=== PATIENT | female | born 1995 | race Caucasian/White ===

== ENCOUNTER 2020-08-02 08:39 | Emergency (ER) | payer OTHER, SELFPAY ==
[2020-08-02 10:16] VITALS: BP 144/89; PULSE 81; RESP 20; TEMP 37.3; O2SAT 100; BMI 27.4
--- NOTE | 2020-08-02 10:24 | CT_ITS ---
EXAMINATION: CT HEAD WITHOUT CONTRAST CLINICAL INFORMATION: Headache for 3 days. Worsening. Age 25. COMPARISON: None TECHNIQUE: Contiguous axial imaging was performed from the skull base to vertex without intravenous administration of contrast. Additional 2-D coronal and sagittal reformatted images are generated on the CT workstation and uploaded to PACS. This CT examination was performed using dose optimization techniques as appropriate, variously including the following: *Automated exposure control *Adjustment of mA and/or kV according to patient size (this includes techniques or standardized protocols for targeted exams where dose is matched to indication/reason for exam; i.e. extremities or head) *Use of iterative reconstruction technique DLP: 640 mGy-cm FINDINGS: There is no intracranial hemorrhage, hematoma, or extra-axial fluid collection. The ventricles are normal in size. There is no hydrocephalus, edema, or mass effect. The delgado-white matter differentiation appears symmetric. There is no visible acute territorial infarct or mass lesion. Incidental anterior falx calcification. The calvarium appears intact. There is no pneumocephalus or orbital emphysema. The visualized sinuses and middle ears and mastoid air cells show no significant mucosal thickening. There are no air-fluid levels. There is small circumscribed nodule right parasagittal scalp vertex measuring 8 x 6 mm with coarse central calcification, likely keratin cyst. CT/CT head/brain wo con IMPRESSION: No acute intracranial abnormality. Sinuses and middle ears and mastoids clear.
--- NOTE | 2020-08-02 10:27 | ED.HA ---
HPI - Headache General Chief Complaint: Headache Stated Complaint: migraine Time Seen by Provider: 08/02/20 10:17 Source: patient Mode of arrival: ambulatory Limitations: no limitations History of Present Illness HPI Narrative: 25yoF c PMHx of Migraine headaches presenting to the ED c c/o gradual onset pressure-like diffusely all over the head migraine headache that started approximately 8 days ago that has been constant not relieved by sumatriptan. patient was also prescribed muscle relaxants by her primary care provider with no symptomatic relief. Reports the pain is worse with laying down or bending over forward. Reports mild relief with sitting up. Reports it feels like her regular migraine headaches with the exception of it being going on for this amount of time which is not usual for her. Denies past medical history of HIV, recent trauma, coagulopathy, recent spinal/ epidural procedure, new medication, URI symptoms, close contacts with similar symptoms, tick bite, or known CO2 exposure. Related Data Previous Rx's Medication Instructions Recorded [id number]-hjyqhxuwbtpqj-bpnf 1 cap PO Q8H PRN #10 cap 08/02/20 [Fioricet] diphenhydramine HCl [Benadryl 25 mg PO TID PRN #10 tab 08/02/20 Allergy] famotidine [Pepcid] 20 mg PO BID #10 tab 08/02/20 ketorolac 10 mg PO TID PRN 5 Days #10 tab 08/02/20 Allergies Allergy/AdvReac Type Severity Reaction Status Date / Time No Known Allergies Allergy Verified 08/02/20 10:23 Review of Systems Review of Systems: Constitutional : No changes in activity, No lethargy, No recent prior head injury, No agitation, No increased fussiness ENT/Mouth : No Ear Pain, No Nasal discharge/drainage Eyes: No Eye Pain, No Swelling, No Redness, No Foreign Body, No Vision Changes Cardiovascular : No Chest Pain, No SOB Respiratory : No Cough Gastrointestinal : No Nausea, No Vomiting, No abdominal Pain Genitourinary : No Dysuria, No Urinary Frequency, No Urinary Incontinence, No Urgency, No Flank Pain Musculoskeletal : No joint pain, No neck stiffness, No back pain/injury Skin : No lacerations Neuro : No unsteady gait, No Paresthesias, No Loss of Consciousness, No altered mental status, No dizziness, + Headache Denies past medical history of HIV, recent trauma, coagulopathy, recent spinal/ epidural procedure, new medication, URI symptoms, close contacts with similar symptoms, tick bite, or known CO2 exposure. Yes all other systems are reviewed and are negative PMFSH Past Medical History Attestation statement: The following information was validated with the patient. Medical History Migraines Social History Social History Smoked in Last 30 Days: No Use of substances other than those prescribed or required for medical reasons: No Advance Directives: No Advance Directives Information Provided: Yes Physical Exam Vital Signs: Vital Signs: Last Vital Signs Temp 99.2 F 08/02/20 10:16 Pulse 74 08/02/20 12:25 Resp 16 08/02/20 12:25 BP 133/82 08/02/20 12:25 Pulse Ox 96 08/02/20 12:25 Body Mass Index 27.4 Vital signs have been reviewed as normal and appeared to be correct. Blood pressure normal. Heart rate normal. Respiration rate normal. Temperature normal. Oxygen saturation normal. Appearance: Alert. Oriented X3. No acute distress. Head: Normal external exam. Normocephalic. Atraumatic. Able to rotate head bilaterally. Eyes: PERRLA. EOMI. No nystagmus noted. Conjunctiva and sclera normal. Eyelids normal. Corneal reflex normal. ENT: EAC normal. TM's Normal. Hearing normal. Pharynx normal. Uvula midline. tongue midline. Moist mucous membranes. No trismus noted. No drooling noted. No muffled voice noted. Neck: Normal inspection. Neck supple. FROM. No adenopathy. Thyroid Normal. No meningeal signs. No neck mass noted. CVS: Normal heart rate and rhythm. Heart sound normal. No murmurs noted. Pulses normal throughout. Respiratory: No respiratory distress. Painless inspiration. Breath sounds normal. No wheezes/rales/rhonchi noted. Chest nontender. No accessory muscle usage noted or decreased air movement noted. Back: Full range of motion noted. Skin: Skin warm and dry. Normal skin color. Normal skin turgor. No rashes/lesions/lacerations noted. Extremities: Extremities exhibit normal range of motion. Extremities nontender. Able to shrug shoulders bilaterally and keep up against resistance. Neuro: Oriented X 3. No motor deficit. No sensory deficit. Reflexes normal. Moving all extremities. No focal motor deficits. Cranial nerves II-XI intact bilaterally. Facial strength normal. Normal cognition. Speech normal. Gait normal. Strength 5/5 throughout. No pronator drift. No tremor noted. No fasciculations noted. Muscle tone normal throughout. No asterixis noted. Qzflkl-lf-nlpy test normal. Heel to kaur test normal. Tandem gait normal. Does not sway with eyes open. Romberg test negative. Rapid alternating movement upper extremity normal. Rapid alternating movement lower extremity normal. Hand drop from overhead-Mrs. face. No rigidity noted. NIHSS score 0. Course Course Course Narrative: 10:30AM - 25yoF c PMHx of Migraine headaches presenting to the ED c c/o gradual onset pressure-like diffusely all over the head migraine headache that started approximately 8 days ago that has been constant not relieved by sumatriptan. Reports it feels like her regular migraine headaches with the exception of it being going on for this amount of time which is not usual for her. - Patient afebrile, resting comfortably in no distress. Non-toxic appearing. Patient denies any recent trauma/injury to head. Neurological exam shows no deficits. BP WNL. Denies any changes in vision. Patient ambulates without difficulty. Given the history, and physical - most likely diagnosis: Migraine LUJAN. Although due to patient reporting that this is longer than her usual headaches will obtain CT scan of brain to evaluate for any acute processes. Will treat pain then Re-evaluate. Reevaluation(s) Reevaluation #1: patient's platelet count 446. CRP mildly elevated at 0.72 otherwise all other labs are within normal limits. CT scan revealed chronic changes no acute processes noted. Patient reports symptomatic relief of her headache after the Toradol, Benadryl, Reglan and Decadron. Will DC home with symptomatic treatment along with instructions return if any new or worsening symptoms to follow-up with primary care provider. Patient understands agrees with this plan. Time: 14:04 MDM - Headache MDM Narrative Medical decision making narrative: gradual onset LUJAN with photophobia. Pt states classic of previous migraine HAs. SAH: unlikely given gradual onset and similar to previous episodes Intracranial bleed: unlikely given neg trauma, neg anticoagulation Meningitis: unlikely given pt afebrile, neg stiff neck, no immune compromise. Exam without signs of meningismus Temporal arteritis: Unlikely given Neg jaw claudication, no temporal tenderness or nodularity on exam. Cerebral venous thrombosis: unlikely given no h/o hypercoaguable state, no chronic head/neck infection. Medical Records Attestation: I reviewed the patient's medical records. Lab Data Attestation: I reviewed the patient's lab results. Result diagrams: 08/02/20 11:04 08/02/20 12:15 Labs: Lab Results 08/02/20 08/02/20 08/02/20 Range/Units 11:04 12:15 12:15 WBC 7.3 (4.8-10.8) X10*3/uL RBC 4.86 (4.20-5.50) X10*6/uL Hgb 14.0 (12.0-16.0) g/dl Hct 42.0 (37-47) % MCV 86.4 (80-98) fL MCH 28.8 (27.0-33.0) pg MCHC 33.3 (31.0-35.0) g/dl RDW 12.6 (11.0-16.0) % Plt Count 446 H (160-400) X10*3/uL MPV 10.5 (9.4-12.3) fL Immature Gran % (Auto) 0.3 (0.0-0.4) % Neut % (Auto) 69.3 (45-73) % Lymph % (Auto) 22.6 (20-40) % [place] % (Auto) 6.0 (2-11) % Eos % (Auto) 1.5 (0-4) % Baso % (Auto) 0.3 (0-2) % Lymph # (Auto) 1.7 (1.2-4.9) X10*3/uL [place] # (Auto) 0.4 (0.1-1.2) X10*3/uL Eos # (Auto) 0.1 (0.0-0.4) X10*3/uL Baso # (Auto) 0.0 (0.0-0.2) X10*3/uL Abs Immat Gran (auto) 0.02 (0.00-0.03) X10*3/uL Absolute Neuts (auto) 5.1 (2.0-8.3) X10*3/uL Absolute Nucleated RBC 0.000 (0.0-0.012) X10*3/uL Nucleated RBC % (auto) 0.0 (0.0-0.2) /100WBC ESR 14 (0-20) MM/HR Sodium 140 (135-145) mmol/L Potassium 4.0 (3.3-5.1) mmol/l Chloride 108 (96-108) mmol/L Carbon Dioxide 25 (22-29) mmol/L Anion Gap 11 L (12-20) BUN 7 L (9-16) mg/dL Creatinine 0.66 (0.5-1.4) mg/dL Estim Creat Clear Calc 127.2 Estimated GFR > 60 Random Glucose 75 (60-115) mg/dL Calcium 8.6 (8.4-10.2) mg/dL C-Reactive Protein 0.72 H (< or = 0.50) mg/dL Beta HCG, Quant mIU/mL 08/02/20 Range/Units 12:15 WBC (4.8-10.8) X10*3/uL RBC (4.20-5.50) X10*6/uL Hgb (12.0-16.0) g/dl Hct (37-47) % MCV (80-98) fL MCH (27.0-33.0) pg MCHC (31.0-35.0) g/dl RDW (11.0-16.0) % Plt Count (160-400) X10*3/uL MPV (9.4-12.3) fL Immature Gran % (Auto) (0.0-0.4) % Neut % (Auto) (45-73) % Lymph % (Auto) (20-40) % [place] % (Auto) (2-11) % Eos % (Auto) (0-4) % Baso % (Auto) (0-2) % Lymph # (Auto) (1.2-4.9) X10*3/uL [place] # (Auto) (0.1-1.2) X10*3/uL Eos # (Auto) (0.0-0.4) X10*3/uL Baso # (Auto) (0.0-0.2) X10*3/uL Abs Immat Gran (auto) (0.00-0.03) X10*3/uL Absolute Neuts (auto) (2.0-8.3) X10*3/uL Absolute Nucleated RBC (0.0-0.012) X10*3/uL Nucleated RBC % (auto) (0.0-0.2) /100WBC ESR (0-20) MM/HR Sodium (135-145) mmol/L Potassium (3.3-5.1) mmol/l Chloride (96-108) mmol/L Carbon Dioxide (22-29) mmol/L Anion Gap (12-20) BUN (9-16) mg/dL Creatinine (0.5-1.4) mg/dL Estim Creat Clear Calc Estimated GFR Random Glucose (60-115) mg/dL Calcium (8.4-10.2) mg/dL C-Reactive Protein (< or = 0.50) mg/dL Beta HCG, Quant < 2 mIU/mL Imaging Data CT scan - head: Attestation: I personally reviewed and interpreted this imaging study as follows: Radiologist's impression: FINDINGS: There is no intracranial hemorrhage, hematoma, or extra-axial fluid collection. The ventricles are normal in size. There is no hydrocephalus, edema, or mass effect. The delgado-white matter differentiation appears symmetric. There is no visible acute territorial infarct or mass lesion. Incidental anterior falx calcification. The calvarium appears intact. There is no pneumocephalus or orbital emphysema. The visualized sinuses and middle ears and mastoid air cells show no significant mucosal thickening. There are no air-fluid levels. There is small circumscribed nodule right parasagittal scalp vertex measuring 8 x 6 mm with coarse central calcification, likely keratin cyst. CT/CT head/brain wo con IMPRESSION: No acute intracranial abnormality. Sinuses and middle ears and mastoids clear. Discharge Plan Discharge Clinical Impression: Migraines Patient Disposition: Home, Self-Care Instructions: Migraine Headache (ED) Prescriptions: New ketorolac 10 mg tablet 10 mg PO TID PRN (Reason: pain) 5 Days Qty: 10 RF: 0 diphenhydramine HCl [Benadryl Allergy] 25 mg tablet 25 mg PO TID PRN (Reason: sleep) Qty: 10 RF: 0 famotidine [Pepcid] 20 mg tablet 20 mg PO BID Qty: 10 RF: 0 [id number] [Fioricet] 50-300-40 mg capsule 1 cap PO Q8H PRN (Reason: pain) Qty: 10 RF: 0 Referrals: dArienne Kuhn NP [Primary Care Provider] - 2 days Stand Alone Forms: Work/School Release Print Language: Czech
[2020-08-02] MEDS: Metoclopramide HCl 10 MG/2 ML VIAL IVPUSH (11:08)
[2020-08-02] MEDS: Ketorolac Tromethamine 30 MG/ML VIAL IVPUSH (11:08)
[2020-08-02] MEDS: diphenhydrAMINE HCL 50 MG/ML VIAL 25 MG IVPUSH (11:08)
[2020-08-02] MEDS: 0.9 % Sodium Chloride 1,000 ML 999 ML IVCONT (11:08)
[2020-08-02 11:16] LABS: MANUAL DIFF FLAG NO
[2020-08-02 12:25] VITALS: BP 133/82; PULSE 74; RESP 16; O2SAT 96
[2020-08-02 12:26] LABS: Basophils Percent Auto 0.3 % (0-2); Eosinophils Absolute Auto 0.1 X10*3/uL (0.0-0.4); Eosinophils Percent Auto 1.5 % (0-4); Imm Gran Abs Auto 0.02 X10*3/uL (0.00-0.03); Imm Gran Pct Auto 0.3 % (0.0-0.4); Lymphocytes Absolute Auto 1.7 X10*3/uL (1.2-4.9); Lymphocytes Percent Auto 22.6 % (20-40); Mean Corpuscular HGB Conc 33.3 g/dl (31.0-35.0); Mean Corpuscular Hemoglobin 28.8 pg (27.0-33.0); Mean Corpuscular Volume 86.4 fL (80-98); Mean Platelet Volume 10.5 fL (9.4-12.3); Monocytes Absolute Auto 0.4 X10*3/uL (0.1-1.2); Neutrophils Absolute Auto 5.1 X10*3/uL (2.0-8.3); Neutrophils Percent Auto 69.3 % (45-73); Platelet Count 446 X10*3/uL (160-400); Red Blood Count 4.86 X10*6/uL (4.20-5.50); Red Cell Distribution Width 12.6 % (11.0-16.0); White Blood Count 7.3 X10*3/uL (4.8-10.8)
[2020-08-02 13:02] LABS: Anion Gap 11 (12-20); Blood Urea Nitrogen 7 mg/dL (9-16); C Reactive Protein 0.72 mg/dL (< or = 0.50); Calcium 8.6 mg/dL (8.4-10.2); Carbon Dioxide 25 mmol/L (22-29); Chloride 108 mmol/L (96-108); Creatinine Clr Calc Pharmacy 127.2; Estimated Glomerular Filt Rate > 60; Glucose Random 75 mg/dL (60-115); Sodium 140 mmol/L (135-145)
[2020-08-02] MEDS: dexAMETHasone sod phosphate 10 MG/ML VIAL IVPUSH (13:04)
[2020-08-02 13:07] LABS: HCG Quantitative < 2 mIU/mL
[2020-08-02 13:23] LABS: Erythrocyte Sedimentation Rate 14 MM/HR (0-20)
== END 2020-08-02 14:17 | disposition home or self-care (01) ==
PROVIDERS: Physician Assistant Medical; Emergency Provider Emergency Medicine; PCP Nurse Practitioner
DX: G43.909 Migraine, unspecified, not intractable, without status migrainosus (principal); Z79.899 Other long term (current) drug therapy
CPT/HCPCS: 36415; 70450; 80048; 84702; 85025; 85652; 86140; 96361; 96374; 96375; 99284; J1100; J1200; J1885; J2765

== ENCOUNTER 2020-12-25 08:56 | Emergency (ER) | payer OTHER, SELFPAY ==
[2020-12-25 09:26] VITALS: BP 147/101; PULSE 91; RESP 16; O2SAT 98; BMI 31.6
--- NOTE | 2020-12-25 09:26 | ED_ITS ---
HPI - Neck Pain/Injury General Chief Complaint: Upper Respiratory Symptoms Stated Complaint: sorethroat Time Seen by Provider: 12/25/20 09:24 Source: patient Mode of arrival: ambulatory Limitations: no limitations History of Present Illness HPI Narrative: Headache for one week sore throat for 4 days, no able to eat or drink Onset (ago): day(s) Severity scale (1-10): 5 Quality: sharp Associated symptoms: headache, fever, swollen glands, difficulty swallowing and nausea Treatments prior to arrival: other Related Data Previous Rx's Medication Instructions Recorded [id number]-udazpuumryxwl-[id number] 1 cap PO Q8H PRN #10 cap 08/02/20 [Fioricet] diphenhydramine HCl [Benadryl 25 mg PO TID PRN #10 tab 08/02/20 Allergy] famotidine [Pepcid] 20 mg PO BID #10 tab 08/02/20 ketorolac 10 mg PO TID PRN 5 Days #10 tab 08/02/20 clindamycin HCl 300 mg PO TID #21 cap 12/25/20 Allergies Allergy/AdvReac Type Severity Reaction Status Date / Time Penicillins Allergy Unknown Verified 12/25/20 09:29 Review of Systems Constitutional: Constitutional: Reports no additional constitutional complaints Eyes: Eyes: Reports no additional eye complaints ENT: Denies dizziness Cardiovascular: Cardiovascular: Reports no additional cardiovascular complaints Respiratory: Respiratory: Reports as per HPI Gastrointestinal: Gastrointestinal: Reports no additional gastrointestinal complaints Genitourinary: Genitourinary: Reports no additional female genitourinary complaints Musculoskeletal: Musculoskeletal: Reports no additional musculoskeletal complaints Integumentary/Breasts: Skin/Breast: Denies rash Neurologic: Reports system reviewed and no additional complaints, except as documented, Denies dizziness and Denies Sensory deficit (Neuro) Psychiatric: Psychiatric: Denies anxiety PMFSH Past Medical History Medical History Migraines Social History Social History Advance Directives: Yes Advance Directives Information Provided: Yes Advance Directives on File: No Physical Exam Vital Signs: Vital Signs: Last Vital Signs Pulse 91 12/25/20 09:26 Resp 16 12/25/20 09:26 BP 147/101 H 12/25/20 09:26 Pulse Ox 98 04/13/21 09:26 Body Mass Index 31.6 Const: General: healthy appearing Nutritional Appearance: average body habitus Orientation/consciousness: oriented to person and patient oriented x3 Limitations: no limitations HENMT: Other: erythema and diffuse exudates of oral pharynx Head: Yes normal to inspection Ears: external ears normal General nose exam: Normal external nose present Throat: Yes posterior oropharynx normal Eyes: General: appearance normal, both eyes and all related structures Neck: Other: supple Neck: Yes normal visual inspection Chest: Chest palpation & inspection: normal inspection of the chest Resp: Auscultation: clear to auscultation bilaterally Cardio: Jugular venous distension: no JVD Rate: regular rate Rhythm: regular rhythm Heart sounds: S1 normal heart sound present and S2 normal heart sound present GI: Inspection: Yes normal to inspection Palpation (GI): Soft to palpation, nontender and No hepatosplenomegaly present Auscultation: normal bowel sounds : General: Yes no CVA tenderness Back/Spine/Pelvis: Back: no CVA tenderness Skin: General skin exam: no rashes or lesions noted Neuro: General: oriented to person and patient oriented x3 Cranial nerves: Yes CN's II-XII intact bilaterally Motor exam (neuro): 5/5 motor strength present throughout Sensory Exam: No Sensory deficit (Neuro) Extrem: General: Yes normal to inspection Psych: Appearance: grossly normal Course Course Course Narrative: with negative monospot and 5 days of symptoms will give decadron and start clindamycin MDM - Neck Pain/Injury MDM Narrative Medical decision making narrative: exudative pharyngitis, monospot negative, rapid strep negative Lab Data Labs: Lab Results 12/25/20 Range/Units 10:15 Monoscreen Negative (Negative) Discharge Plan Discharge Clinical Impression: Exudative pharyngitis Patient Disposition: Home, Self-Care Instructions: Pharyngitis (ED) Prescriptions: New clindamycin HCl 300 mg capsule 300 mg PO TID Qty: 21 RF: 0 No Action ketorolac 10 mg tablet 10 mg PO TID PRN (Reason: pain) 5 Days Qty: 10 RF: 0 diphenhydramine HCl [Benadryl Allergy] 25 mg tablet 25 mg PO TID PRN (Reason: sleep) Qty: 10 RF: 0 famotidine [Pepcid] 20 mg tablet 20 mg PO BID Qty: 10 RF: 0 [id number]-dkeh [Fioricet] 50-300-40 mg capsule 1 cap PO Q8H PRN (Reason: pain) Qty: 10 RF: 0 Referrals: Adrienne Kuhn, [employer] [Primary Care Provider] - 2 days
[2020-12-25] MEDS: Ketorolac Tromethamine 60 MG/2 ML VIAL IM (10:10)
[2020-12-25 11:03] LABS: Monotest Negative (Negative)
[2020-12-25 12:47] LABS: CT PCR NOT DETECTED (Not Detect.); NG PCR NOT DETECTED (Not Detect.)
== END 2020-12-25 13:15 | disposition home or self-care (01) ==
PROVIDERS: Emergency Provider Emergency Medicine; PCP Nurse Practitioner
DX: J02.9 Acute pharyngitis, unspecified (principal); R51.9 Headache, unspecified
CPT/HCPCS: 36415; 86308; 87071; 87491; 87591; 87880; 96372; 99282; 99284; J1100; J1885

== ENCOUNTER 2021-02-24 11:16 | Emergency (ER) | payer OTHER, SELFPAY ==
[2021-02-24 11:32] VITALS: BP 147/88; PULSE 81; RESP 16; TEMP 36.6; O2SAT 98; BMI 30.9
--- NOTE | 2021-03-05 12:02 | ED_ITS ---
HPI - Back Pain/Injury General Chief Complaint: Back Pain/Injury Stated Complaint: lower back pain History of Present Illness HPI Narrative: Patient left without being seen and I did not see this patient Related Data Previous Rx's Medication Instructions Recorded [id number]-qzopfufnwldxa-ncac 1 cap PO Q8H PRN #10 cap 08/02/20 [Fioricet] diphenhydramine HCl [Benadryl 25 mg PO TID PRN #10 tab 08/02/20 Allergy] famotidine [Pepcid] 20 mg PO BID #10 tab 08/02/20 ketorolac 10 mg PO TID PRN 5 Days #10 tab 08/02/20 clindamycin HCl 300 mg PO TID #21 cap 12/25/20 Allergies Allergy/AdvReac Type Severity Reaction Status Date / Time Penicillins Allergy Unknown Verified 12/25/20 09:29 [facility] Past Medical History Medical History Migraines Social History Social History Advance Directives: Yes Advance Directives Information Provided: Yes Advance Directives on File: No Patient : No Physical Exam Vital Signs: Vital Signs: Last Vital Signs Temp 97.9 F 02/24/21 11:32 Pulse 81 02/24/21 11:32 Resp 16 02/24/21 11:32 BP 147/88 H 02/24/21 11:32 Pulse Ox 98 02/24/21 11:32 Body Mass Index 30.9 Discharge Plan Discharge Patient Disposition: Left Without Being Seen Interventions: LWBS Worksheet Last Done: 02/24/21 13:25 Discharge Date/Time: 02/24/21 13:26
== END 2021-02-24 13:26 | disposition left against medical advice (07) ==
PROVIDERS: Emergency Provider Emergency Medicine; PCP Nurse Practitioner
DX: M54.5 Low back pain (principal)
CPT/HCPCS: 99281; 99282

== ENCOUNTER 2022-03-18 02:47 | Emergency (ER) | payer OTHER, SELFPAY ==
[2022-03-18 03:04] VITALS: BP 138/89; PULSE 86; RESP 20; TEMP 36.7; O2SAT 99; BMI 32.9
--- NOTE | 2022-03-18 03:08 | ECG_ITS ---
Test Reason : CHEST PAIN Blood Pressure : / mmHG Vent. Rate : 078 BPM Atrial Rate : 078 BPM P-R Int : 128 ms QRS Dur : 082 ms QT Int : 376 ms P-R-T Axes : 065 071 047 degrees QTc Int : 428 ms Normal sinus rhythm Normal ECG No previous ECGs available Referred By: Generic ED Physician Electronically Signed By:Cain Phan
--- NOTE | 2022-03-18 03:27 | ED.GENADULT ---
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 The patient said she felt very anxious and panicky while driving. Patient also had eaten later than usual and developed some sensation of heartburn. Patient ate an edible after she got home, but states that she had eaten the same thing a few days ago without any med reaction. Patient did feel somewhat lightheaded. She denies any nausea vomiting, sweats, shortness of breath, pain or swelling in her legs. Related Data Previous Rx's Medication Instructions Recorded [id number]-hcksavncfqzmy-vcrxyzhu 1 cap PO Q8H PRN pain #10 caps 08/02/20 50 mg-300 mg-40 mg capsule (Fioricet) diphenhydramine HCl 25 mg tablet 25 mg PO TID PRN sleep #10 tabs 08/02/20 (Benadryl Allergy) famotidine 20 mg tablet (Pepcid) 20 mg PO BID rebound effect of 08/02/20 benadryl #10 tabs ketorolac 10 mg tablet 10 mg PO TID PRN pain 5 days #10 08/02/20 tabs clindamycin HCl 300 mg capsule 300 mg PO TID #21 caps 12/25/20 Allergies Allergy/AdvReac Type Severity Reaction Status Date / Time Penicillins Allergy Unknown Verified 12/25/20 09:29 Review of Systems Review of Systems: As per HPI [facility] Past Medical History Medical History Migraines Social History Social History Advance Directives: No Physical Exam ED Vital Signs: Vital Signs - 24 hr 03/18/22 03:04 Temperature 98.0 F Pulse Rate 86 Respiratory Rate 20 Blood Pressure 138/89 Pulse Oximetry 99 Oxygen Delivery Method Room Air BMI result Body Mass Index 32.9 Const General: no acute distress Orientation/consciousness: patient oriented x3 HENMT Head: Yes normal to inspection General nose exam: Normal external nose present Mouth: moist mucous membranes Throat: Yes posterior oropharynx normal, Yes tonsils normal and Yes uvula midline Eyes Eyelids: Yes eyelids normal Conjunctivae: conjunctivae normal Pupils: Equal, round and reactive pupils present Neck Neck: Yes supple Resp Effort & Inspection: normal respiratory effort Auscultation: clear to auscultation bilaterally Cardio Rate: regular rate Rhythm: regular rhythm Heart sounds: S1 normal heart sound present, S2 normal heart sound present, no gallops, no murmurs and no rubs GI Inspection: No distended Palpation (GI): Soft to palpation and nontender Auscultation: normal bowel sounds Skin General skin exam: other (Warm and dry) Neuro General: patient oriented x3 and CN's II-XI intact bilaterally Cranial nerves: Yes Equal, round and reactive pupils present Extrem General: Yes no pedal edema Psych Affect: normal affect Attitude: cooperative Course Course Course Narrative: Patient was given lorazepam 1 mg p.o., as well as Maalox 30 mL p.o.. She had improvement in her symptoms. Symptoms of treatable to anxiety related to having to drive, when she is still learning how.. EKG normal. Medical Decision Making Lab Data Labs: Lab Results 03/18/22 03/18/22 03/18/22 Range/Units 03:28 03:28 03:32 POC Glucose 76 (60-115) mg/dL COVID-19 (ESTEVAN) Negative (Negative) COVID-19 Clin Com See Note Influenza Type A (AYANA) Negative (Negative) Influenza Type B (AYANA) Negative (Negative) Influenza A & B Note See Note ECG Data Attestation: I personally reviewed and interpreted this ECG as follows: Interpretation: sinus rhythm with a rate of 78. No ST elevation or depression. Normal QRS axis. No ectopy. Normal EKG. Discharge Plan Discharge Clinical Impression: Anxiety, Chest discomfort Patient Disposition: Home, Self-Care Instructions: Noncardiac Chest Pain (ED), Anxiety (ED) Additional Instructions: Follow-up with primary care physician as needed. Try to start your automobile driving under very controlled and easy circumstances, so you do not develop associated anxiety. Prescriptions: No Action ketorolac 10 mg tablet 10 mg PO TID PRN (Reason: pain) 5 Days Qty: 10 0RF Rx Instructions: Patient given 1st dose in the ED by IV and tolerated well diphenhydramine HCl [Benadryl Allergy] 25 mg tablet 25 mg PO TID PRN (Reason: sleep) Qty: 10 0RF famotidine [Pepcid] 20 mg tablet 20 mg PO BID Qty: 10 0RF [id number]-nddvfwnhsgzic-xijo [Fioricet] 50-300-40 mg capsule 1 cap PO Q8H PRN (Reason: pain) Qty: 10 0RF clindamycin HCl 300 mg capsule 300 mg PO TID Qty: 21 0RF
[2022-03-18 03:36] LABS: Glucose, Whole Blood 76 mg/dL (60-115)
[2022-03-18 03:47] LABS: COVID-19 Test Negative (Negative); IDNOW Serial# 55D5AD1C; Influenza A Negative (Negative); Influenza B2 Negative (Negative)
[2022-03-18] MEDS: LORazepam 1 MG TABLET PO (03:57)
[2022-03-18] MEDS: Magnesium Hydrox/Alum Hydrox 30 ML ORAL.SUSP PO (03:57)
[2022-03-18 05:07] VITALS: BP 132/85; PULSE 82; RESP 18; O2SAT 99
== END 2022-03-18 05:13 | disposition home or self-care (01) ==
PROVIDERS: Emergency Provider Emergency Medicine; PCP Nurse Practitioner
DX: R07.89 Other chest pain (principal); F41.1 Generalized anxiety disorder; F43.0 Acute stress reaction; Z20.822 Contact with and (suspected) exposure to COVID-19; Z79.899 Other long term (current) drug therapy
CPT/HCPCS: 82947; 87502; 87635; 93005; 99284

== ENCOUNTER 2024-01-05 18:30 | Emergency (ER) | payer OTHER, SELFPAY ==
--- NOTE | ~2024-01-05 | CT_ITS ---
EXAMINATION: CT head/brain wo IV con CLINICAL INFORMATION: Reason for Exam headache COMPARISON: CT head without contrast 08/02/2020 TECHNIQUE: Contiguous axial imaging was performed from the skull base to vertex without intravenous contrast. Sagittal and coronal reformatted images were obtained. This CT examination was performed using dose optimization techniques as appropriate, variously including the following: * Automated exposure control * Adjustment of mA and/or kV according to patient size (this includes techniques or standardized protocols for targeted exams where dose is matched to indication/reason for exam; i.e. extremities or head) Use of iterative reconstruction technique DLP: 598 mGy-cm FINDINGS: No acute osseous or soft tissue abnormality. The mastoid air cells and visualized portions of the paranasal sinuses are well aerated. There is no evidence of acute intracranial hemorrhage or territorial infarction. No abnormal mass effect or midline shift is seen. Lainer to white matter differentiation is well preserved. No extra-axial fluid collections are identified. No hydrocephalus. No significant volume loss. There is no abnormal attenuation within the brain parenchyma. CT/CT head/brain wo IV con IMPRESSION: No acute intracranial abnormality including hemorrhage, mass effect, hydrocephalus, or acute territorial edematous infarction.
[2024-01-05 19:04] VITALS: BP 170/97; PULSE 62; RESP 18; TEMP 35.9; O2SAT 95; BMI 27.5
--- NOTE | 2024-01-05 19:04 | ED.GENADULT ---
HPI - General Adult General Chief complaint: Headache Stated complaint: HBP, Migraine Related Data Previous Rx's ?Medication ?Instructions ?Recorded xqzxvvnfji-hirvhqeojzylj-rfwoyzpj 1 cap PO Q8H PRN pain #10 caps 08/02/20 50 mg-300 mg-40 mg capsule (Fioricet) diphenhydramine HCl 25 mg tablet 25 mg PO TID PRN sleep #10 tabs 08/02/20 (Benadryl Allergy) famotidine 20 mg tablet (Pepcid) 20 mg PO BID rebound effect of 08/02/20 benadryl #10 tabs ketorolac 10 mg tablet 10 mg PO TID PRN pain 5 days #10 08/02/20 tabs clindamycin HCl 300 mg capsule 300 mg PO TID #21 caps 12/25/20 Allergies Allergy/AdvReac Type Severity Reaction Status Date / Time Penicillins Allergy Rash Verified 01/05/24 19:06 shellfish derived Allergy Anaphylaxis Verified 01/05/24 19:06 REPLACED BY [facility] Past Medical History Medical History Migraines Social History Social History Advance Directives: No Advance Directives Information Provided: No Physical Exam ED Vital Signs: Vital Signs - 24 hr 01/05/24 19:04 01/05/24 21:20 Temperature 96.6 F L Pulse Rate 62 66 Respiratory Rate 18 16 Blood Pressure 170/97 H 169/96 H Pulse Oximetry 95 Oxygen Delivery Method Room Air BMI result Body Mass Index 27.5 Course Course Course Narrative: This is an RME: Additional HPI, ROS, PE not included below will be deferred to primary provider. This is a 89-pzrg-pn[age]-female, with a hx of migraines, who presents to the ER with complaints of headache and dizziness x 1.5 days. BP elevated at 165/90. Reporting this headache is worse than her typical migraines. Took excedrin migraine at 2pm. neurologically intact. Plan: Lab, CT Medical Decision Making Lab Data 01/05/24 19:44 01/05/24 19:44 Labs: Lab Results 01/05/24 Range/Units 19:44 WBC 7.4 (4.8-10.8) X10*3/uL RBC 4.84 (4.20-5.50) X10*6/uL Hgb 13.9 (12.0-16.0) g/dl Hct 41.4 (37.0-47.0) % MCV 85.5 (80.0-98.0) fL MCH 28.7 (27.0-33.0) pg MCHC 33.6 (31.0-35.0) g/dl RDW 13.2 (11.0-16.0) % Plt Count 390 (160-400) X10*3/uL MPV 10.0 (9.4-12.3) fL Immature Gran % (Auto) 0.1 (0.0-0.4) % Neut % (Auto) 60.2 (45-73) % Lymph % (Auto) 30.3 (20-40) % [place] % (Auto) 6.6 (2-11) % Eos % (Auto) 2.3 (0-4) % Baso % (Auto) 0.5 (0-2) % Lymph # (Auto) 2.3 (1.2-4.9) X10*3/uL [place] # (Auto) 0.5 (0.1-1.2) X10*3/uL Eos # (Auto) 0.2 (0.0-0.4) X10*3/uL Baso # (Auto) 0.0 (0.0-0.2) X10*3/uL Abs Immat Gran (auto) 0.01 (0.00-0.03) X10*3/uL Absolute Neuts (auto) 4.5 (2.0-8.3) x10*3/uL Absolute Nucleated RBC 0.000 (0.0-0.012) X10*3/uL Nucleated RBC % (auto) 0.0 (0.0-0.2) /100WBC Sodium 142 (135-145) mmol/L Potassium 3.6 (3.3-5.1) mmol/L Chloride 109 H (96-108) mmol/L Carbon Dioxide 26 (22-29) mmol/L Anion Gap 11 L (12-20) BUN 15 (9-16) mg/dL Creatinine 0.70 (0.5-1.4) mg/dL Estim Creat Clear Calc 112.5 Estimated GFR > 60 Random Glucose 104 (60-115) mg/dL Calcium 9.3 D (8.4-10.2) mg/dL Total Bilirubin 0.1 (0.0-1.0) mg/dL Direct Bilirubin < 0.2 (0.0-0.5) mg/dL AST 16 (5-31) U/L ALT 10 (0-31) U/L Alkaline Phosphatase 89 (39-117) U/L Total Protein 7.7 (6.5-8.0) g/dL Albumin 4.3 (3.5-5.0) g/dL Beta HCG, Quant < 2 mIU/mL Influenza Type A (PCR) NEGATIVE (Negative) Influenza Type B (PCR) NEGATIVE (Negative) RSV RNA Qual (PCR) NEGATIVE (Negative) SARS-CoV-2 RNA (RT-PCR) NEGATIVE (Negative) Discharge Plan Discharge Clinical Impression: Migraines Patient Disposition: Left W/O Completing Treatment Prescriptions: No Action ketorolac 10 mg tablet 10 mg PO TID PRN (Reason: pain) 5 Days Qty: 10 0RF Rx Instructions: Patient given 1st dose in the ED by IV and tolerated well diphenhydramine HCl [Benadryl Allergy] 25 mg tablet 25 mg PO TID PRN (Reason: sleep) Qty: 10 0RF famotidine [Pepcid] 20 mg tablet 20 mg PO BID Qty: 10 0RF clxhivgcnl-dzqaveaszomhv-vuky [Fioricet] 50-300-40 mg capsule 1 cap PO Q8H PRN (Reason: pain) Qty: 10 0RF clindamycin HCl 300 mg capsule 300 mg PO TID Qty: 21 0RF Discharge Date/Time: 01/06/24 01:06
[2024-01-05 19:50] LABS: Basophils Percent Auto 0.5 % (0-2); Eosinophils Absolute Auto 0.2 X10*3/uL (0.0-0.4); Eosinophils Percent Auto 2.3 % (0-4); Hematocrit 41.4 % (37.0-47.0); Hemoglobin 13.9 g/dl (12.0-16.0); Imm Gran Abs Auto 0.01 X10*3/uL (0.00-0.03); Imm Gran Pct Auto 0.1 % (0.0-0.4); Lymphocytes Absolute Auto 2.3 X10*3/uL (1.2-4.9); Lymphocytes Percent Auto 30.3 % (20-40); MANUAL DIFF FLAG NO; Mean Corpuscular HGB Conc 33.6 g/dl (31.0-35.0); Mean Corpuscular Hemoglobin 28.7 pg (27.0-33.0); Mean Corpuscular Volume 85.5 fL (80.0-98.0); Monocytes Absolute Auto 0.5 X10*3/uL (0.1-1.2); Monocytes Percent Auto 6.6 % (2-11); Neutrophils Absolute Auto 4.5 x10*3/uL (2.0-8.3); Neutrophils Percent Auto 60.2 % (45-73); Platelet Count 390 X10*3/uL (160-400); Red Blood Count 4.84 X10*6/uL (4.20-5.50); Red Cell Distribution Width 13.2 % (11.0-16.0); White Blood Count 7.4 X10*3/uL (4.8-10.8)
[2024-01-05 20:11] LABS: Alanine Aminotransferase 10 U/L (0-31); Albumin Level 4.3 g/dL (3.5-5.0); Alkaline Phosphatase 89 U/L (39-117); Anion Gap 11 (12-20); Aspartate Amino Transferase 16 U/L (5-31); Bilirubin Direct < 0.2 mg/dL (0.0-0.5); Bilirubin Total 0.1 mg/dL (0.0-1.0); Blood Urea Nitrogen 15 mg/dL (9-16); Calcium 9.3 mg/dL (8.4-10.2); Carbon Dioxide 26 mmol/L (22-29); Chloride 109 mmol/L (96-108); Creatinine Clr Calc Pharmacy 112.5; Estimated Glomerular Filt Rate > 60; Glucose Random 104 mg/dL (60-115); Potassium 3.6 mmol/L (3.3-5.1); Sodium 142 mmol/L (135-145); Total Protein 7.7 g/dL (6.5-8.0)
[2024-01-05 20:27] LABS: HCG Quantitative < 2 mIU/mL; Influenza A PCR NEGATIVE (Negative); Influenza B PCR NEGATIVE (Negative); Resp Syncy Virus RNA Qual PCR NEGATIVE (Negative); SARS COV2 PCR INHOUSE NEGATIVE (Negative)
[2024-01-05 21:20] VITALS: BP 169/96; PULSE 66; RESP 16
--- OUTSIDE RECORDS SUMMARY | 2024-01-05 22:50 | XMS_ITS | Continuity of Care Document ---
Author Organization [facility] Address [address] [facility], [address] Floor, [address] [place] [address]- Care Team Providers Care String Cutter Name Role Phone Hattie CHAN, Adrienne Thompson Primary Care Physician [phone] Encounter [facility] [place] Date(s): 10/24/22 - 11/23/22 [facility] [address] [facility], [address] Floor, [address] [place] [address] Allergies, Adverse Reactions, Alerts Substance Reaction Severity Status penicillin rash Active shellfish throat itching Active Medications pantoprazole 20 mg oral delayed release tablet 1 tablet = 20 mg, By Mouth, 2 times a day, # 30 tablet, 1 Refills, Maintenance, 08/19/22 10:47:00 EST, CR Tablet, 160.02, cm, 07/24/22 20:03:00 EST, Height, 83.64, kg, 04/02/22 16:51:00 EDT, Dry Weight Start Date: 08/19/22 Status: Ordered rizatriptan 5 mg oral tablet 1 tablet = 5 mg, By Mouth, Daily, Take at onset of migraine. may repeat in 2 hours if needed, do not exceed 2 doses in 24 hours, # 9 tablet, 5 Refills, Maintenance, 06/18/22 12:12:00 EDT, [facility] #[id number], Partial fill upon patient request... Start Date: 06/18/22 Status: Ordered Problem List Condition Confirmation Course Effective Dates Status Health St atus Informant HLD (hyperlipidemia) Confirmed Active Migraines Confirmed Active Obese class I Confirmed Active Social History Social History Type Response Smoking Status Never (less than 100 in lifetime) entered on: 11/03/18 Sex Patient Care team information Care Team Personnel Name: Adrienne Kuhn NP Position: S Outreach Member Role: PCP Address: Address: [facility] [place] [address]- Care Team Related Persons Name: ARPITA WELCH Address: home [address] [place] [address] Name: AMIRAH VILLAGOMEZ Address: home [address] [place] [address]
--- OUTSIDE RECORDS SUMMARY | 2024-01-05 22:50 | XMS_ITS | Continuity of Care Document ---
Author Organization [facility] Elisabet narendra Address [address] [place] [address] [address] [place] [address]- Care Team Providers Care Glass Blowing Lathe Operator Name Role Phone Hattie CHAN, Adrienne Thompson Primary Care Physician [place] [facility] [place] 08/21/21 - 09/20/21 [facility] [address] [place], [place] [address] Attending Physician: Farhat Mujica Admitting Physician: AdmFarhat cunha Referring Physician: AdmtrFarhat Allergies, Adverse Reactions, Alerts Substance Reaction Severity Status penicillin rash Active Medications CeleBREX 100 mg oral capsule 1 capsule = 100 mg, By Mouth, 2 times a day, # 30 capsule, 0 Refills, Maintenance, 11/03/18 13:15:46 EST, Capsule Start Date: 11/03/18 Status: Ordered rizatriptan 5 mg oral tablet 1 tablet = 5 mg, By Mouth, Daily, Take at onset of migraine. may repeat in 2 hours if needed, do not exceed 2 doses in 24 hours, # 9 tablet, 5 Refills, Maintenance, 08/29/21 11:08:00 EST, [id number], Partial fill upon patient request... Start Date: 08/29/21 Status: Ordered Problem List Condition Effective Dates Status Health Status Inform ant HLD (hyperlipidemia)(Confirmed) Active Migraines(Confirmed) Active Obese class I(Confirmed) Active Social History Social History Type Response Smoking Status Never (less than 100 in lifetime) entered on: 11/03/18 Sex
--- OUTSIDE RECORDS SUMMARY | 2024-01-05 22:50 | XMS_ITS | Continuity of Care Document ---
Author Organization [facility] Address Unknown Care Team Providers Care Ese Teacher Name Role Phone Hattie CHAN, Adrienne Thompson Primary Care Physician Encounter [facility] [place] Date(s): 02/07/22 - 03/09/22 [facility] Attending Physician: Farhat Mujica Admitting Physician: Farhat Mujica Referring Physician: Farhat Mujica Allergies, Adverse Reactions, Alerts Substance Reaction Severity Status penicillin rash Active shellfish throat itching Active Problem List Condition Effective Dates Status Health Status Inform ant HLD (hyperlipidemia)(Confirmed) Active Migraines(Confirmed) Active Obese class I(Confirmed) Active Social History Social History Type Response Smoking Status Never (less than 100 in lifetime) entered on: 11/03/18 Sex
--- OUTSIDE RECORDS SUMMARY | 2024-01-05 22:50 | XMS_ITS | Continuity of Care Document ---
Author Organization [facility] Address [address] [place] [address]- Care Team Providers Care Mopper Name Role Phone Hattie CHAN, Adrienne Thompson Primary Care Physician [phone] [id number] - [facility]25/[facility] [address] [address] Attending Physician: Marlin Welch MD Admitting Physician: Marlin Welch MD Referring Physician: Hattie CHAN, Adrienne Thompson Allergies, Adverse Reactions, Alerts Substance Reaction Severity Status penicillin rash Active shellfish throat itching Active Medications modafinil 200 mg oral tablet See Instructions, Take 1/2 tab by mouth daily in the morning, may increase to 1 tab by mouth daily if needed, # 30 tablet, 0 Refills, Maintenance, 12/03/22 17:10:00 EDT, [facility] #[id number], Partial fill upon patient request if the prescriptio... Start Date: 12/03/22 Status: Ordered pantoprazole 20 mg oral delayed release tablet [...] tablet, 5 Refills, Maintenance, 06/18/22 12:12:00 EDT, [facility] #[id number], Partial fill upon patient request... Start Date: 06/18/22 Status: Ordered Problem List Condition Confirmation Course Effective Dates Status Health St atus Informant HLD (hyperlipidemia) Confirmed Active Migraines Confirmed Active Obese class I Confirmed Active Social History Social History Type Response Smoking Status Never (less than 100 in lifetime) entered on: 11/03/18 Sex Patient Care team information Care Team Personnel Name: Hattie CHAN, Adrienne Thompson Position: [facility] Outreach Member Role: PCP Address: Address: [address] [place] [address]- Care Team Related Persons Name: ARPITA WELCH Address: home [address] [place] [address] Name: JOCELYN JAMES Address: [address] [place] [address] Name: AMIRAH VILLAGOMEZ Address: home [address] [place] [address]
--- OUTSIDE RECORDS SUMMARY | 2024-01-05 22:50 | XMS_ITS | Continuity of Care Document ---
Author Organization [facility] Address Unknown Care Team Providers Care Electrolysist Name Role Phone Hattie CHAN, Adrienne Thompson Primary Care Physician Encounter [facility] [place] Date(s): 04/10/21 - 05/10/21 [facility] Allergies, Adverse Reactions, Alerts Substance Reaction Severity Status NKA Active Medications CeleBREX 100 mg oral capsule 1 capsule = 100 mg, By Mouth, 2 times a day, # 30 capsule, 0 Refills, Maintenance, 11/03/18 13:15:46 EST, Capsule Start Date: 11/03/18 Status: Ordered Social History Social History Type Response Smoking Status Never (less than 100 in lifetime) entered on: 11/03/18 Sex
--- OUTSIDE RECORDS SUMMARY | 2024-01-05 22:50 | XMS_ITS | Continuity of Care Document ---
Author Organization [facility] Address [address] [place] [address]- Care Team Providers Care Ui Ux Developer Name Role Phone Hattie CHAN, Adrienne Thompson Primary Care Physician [place] [facility] [place]s): 03/23/23 - 04/22/23 [facility] [address] [place] [address] Attending Physician: Farhat Mujica Admitting Physician: AdmFarhat cunha Referring Physician: Admtr ArJazmin Allergies, Adverse Reactions, Alerts Substance Reaction Severity Status penicillin rash Active shellfish throat itching Active Medications almotriptan 12.5 mg oral tablet 1 tablet = 12.5 mg, By Mouth, Once, PRN for migraine headache, # 9 tablet, 1 Refills, Soft Stop, 02/19/23 10:42:00 EDT, Tablet, [facility] #[id number], Partial fill upon patient request if the prescription is for a schedule II opioid drug., 160.0... Start Date: 02/19/23 Status: Ordered modafinil 200 mg oral tablet See Instructions, Take 1/2 tab by mouth daily in the morning, may increase to 1 tab by mouth daily if needed, # 30 tablet, 0 Refills, Maintenance, 12/03/22 17:10:00 EDT, [facility] #[id number], Partial fill upon patient request if the prescriptio... Start Date: 12/03/22 Status: Ordered nortriptyline 10 mg oral capsule 20 mg, 2, capsule, By Mouth, Daily at bedtime, start by taking 1 tab nightly for 1 week then increase to 2 tablets nightly., # 60 capsule, Refills 3, Tot. Refills 3, Maintenance, 02/19/23 10:54:00 EDT, Route to Pharmacy Electronically, [facility] Start Date: 02/19/23 Status: Ordered pantoprazole 20 mg oral delayed release tablet 1 tablet = 20 mg, By Mouth, 2 times a day, # 30 tablet, 1 Refills, Maintenance, 08/19/22 10:47:00 EST, CR Tablet, 160.02, cm, 07/24/22 20:03:00 EST, Height, 83.64, kg, 04/02/22 16:51:00 EDT, Dry Weight Start Date: 08/19/22 Status: Ordered rizatriptan 10 mg oral tablet 1 tablet = 10 mg, By Mouth, Once, PRN for migraine headache, one time refill until pt gets almotriptan approved throug insurance., # 9 tablet, 0 Refills, Soft Stop, 02/19/23 10:53:00 EDT, Tablet, [facility] #[id number], Partial fill upon patient... Start Date: 02/19/23 Status: Ordered Problem List Condition Confirmation Course Effective Dates Status Health St atus Informant HLD (hyperlipidemia) Confirmed Active Migraines Confirmed Active Social History Social History Type Response Smoking Status Never (less than 100 in lifetime) entered on: 11/03/18 Sex Patient Care team information Care Team Personnel Name: Hattie CHAN, Adrienne Thompson Position: [facility] Outreach Member Role: PCP Address: Address: [address] [place] [address]- Care Team Related Persons Name: ARPITA WELCH Address: home [address] [place] [address] Name: JOCELYN JAMES Address: [address] [place] [address] Name: AMIRAH VILLAGOMEZ Address: home [address] [place] [address]
--- OUTSIDE RECORDS SUMMARY | 2024-01-05 22:50 | XMS_ITS | Continuity of Care Document ---
Author Organization [facility] Address [address] [place] [address]- Care Team Providers Care Ibm Websphere Commerce Developer Name Role Phone Hattie CHAN, Adrienne Thompson Primary Care Physician Encounter [facility] [place] Date(s): 03/19/23 - 04/22/[address] [address] Attending Physician: Marlin Welch MD Admitting Physician: Marlin Welch MD Referring Physician: Hattie CHAN, Adrienne Thompson Allergies, Adverse Reactions, Alerts Substance Reaction Severity Status penicillin rash Active shellfish throat itching Active Medications almotriptan 12.5 mg oral tablet 1 tablet = 12.5 mg, By Mouth, Once, PRN for migraine headache, # 9 tablet, 1 Refills, Soft Stop, 02/19/23 10:42:00 EDT, Tablet, [facility][id number], Partial fill upon patient request if the prescription is for a schedule II opioid drug., 160.0... Start Date: 02/19/23 Status: Ordered modafinil 200 mg oral tablet See Instructions, Take 1/2 tab by mouth daily in the morning, may increase to 1 tab by mouth daily if needed, # 30 tablet, 0 Refills, Maintenance, 12/03/22 17:10:00 EDT, [facility] #[id number], Partial fill upon patient request if the prescriptio... Start Date: 12/03/22 Status: Ordered nortriptyline 10 mg oral capsule 20 mg, 2, capsule, By Mouth, Daily at bedtime, start by taking 1 tab nightly for 1 week then increase to 2 tablets nightly., # 60 capsule, Refills 3, Tot. Refills 3, Maintenance, 02/19/23 10:54:00 EDT, Route to Pharmacy Electronically, [facility] Start Date: 02/19/23 Status: Ordered pantoprazole [...] Refills, Soft Stop, 02/19/23 10:53:00 EDT, Tablet, [facility] #[id number], Partial fill upon patient... Start Date: 02/19/23 Status: Ordered Problem List Condition Confirmation Course Effective Dates Status Health St atus Informant HLD (hyperlipidemia) Confirmed Active Migraines Confirmed Active Social History Social History Type Response Smoking Status Never (less than 100 in lifetime) entered on: 11/03/18 Sex Patient Care team information Care Team Personnel Name: Hattie CHAN, Adrienne Thompson Position: [facility] Outreach Member Role: PCP Address: Address: [address] [place] [address]- Care Team Related Persons Name: ARPITA WELCH Address: home [address] [place] [address] Name: JOCELYN JAMES Address: [address] [place] [address] Name: AMIRAH VILLAGOMEZ Address: home [address] [place] [address]
--- OUTSIDE RECORDS SUMMARY | 2024-01-05 22:50 | XMS_ITS | Continuity of Care Document ---
Author Organization [facility] Address [address] [place] [address]- Care Team Providers Care Cyber Security Instructor Name Role Phone Hattie CHAN, Adrienne Thompson Primary Care Physician Encounter [facility] [place] Date(s): 12/05/21 - 01/04/22 [facility] [address] [place] [id number] Attending Physician: Farhat Mujica Admitting Physician: Farhat Mujica Referring Physician: AdmtrFarhat Allergies, Adverse Reactions, Alerts Substance Reaction Severity Status penicillin rash Active shellfish throat itching Active Problem List Condition Effective Dates Status Health Status Inform ant HLD (hyperlipidemia)(Confirmed) Active Migraines(Confirmed) Active Obese class I(Confirmed) Active Social History Social History Type Response Smoking Status Never (less than 100 in lifetime) entered on: 11/03/18 Sex
--- OUTSIDE RECORDS SUMMARY | 2024-01-05 22:50 | XMS_ITS | Continuity of Care Document ---
Author Organization [facility] Address [address] [place] [address]- Care Team Providers Care Merchandise Stocker Name Role Phone Hattie CHAN, Adrienne Thompson Primary Care Physician Encounter [facility] [place] Date(s): 01/16/22 - 02/15/22 [facility] [address] [address] Attending Physician: Farhat Mujica Admitting Physician: [...]
--- OUTSIDE RECORDS SUMMARY | 2024-01-05 22:50 | XMS_ITS | Continuity of Care Document ---
Author Organization [facility] Address Unknown Care Team Providers Care Manager Administrative Services Name Role Phone Hattie CHAN, Adrienne Thompson Primary Care Physician En[place] [facility] [place] Date(s): 05/29/21 - 06/28/21 [facility] Attending Physician: Farhat Mujica Admitting Physician: Farhat Mujica Referring Physician: Farhat Mujica Allergies, Adverse Reactions, Alerts Substance Reaction Severity Status penicillin rash Active Medications CeleBREX 100 mg oral capsule 1 capsule = 100 mg, By Mouth, 2 times a day, # 30 capsule, 0 Refills, Maintenance, 11/03/18 13:15:46 EST, Capsule Start Date: 11/03/18 Status: Ordered Problem List Condition Effective Dates Status Health Status Inform ant HLD (hyperlipidemia)(Confirmed) Active Migraines(Confirmed) Active Social History Social History Type Response Smoking Status Never (less than 100 in lifetime) entered on: 11/03/18 Sex
--- OUTSIDE RECORDS SUMMARY | 2024-01-05 22:50 | XMS_ITS | Continuity of Care Document ---
Author Organization [facility] Address [address] [facility], [address] Floor, [address] [place] [address]- Care Team Providers Care Preparer Samples And Repairs Name Role Phone Hattie CHAN, Adrienne Thompson Primary Care Physician Encounter [facility] [place] Date(s): 10/24/22 - 11/29/22 [facility] [address] [facility], [address] Floor, [address] [place] [address] Attending Physician: Favian Sepulveda MD Admitting Physician: Favian Sepulveda MD Allergies, Adverse Reactions, Alerts Substance Reaction Severity [...] tablet, 5 Refills, Maintenance, 06/18/22 12:12:00 EDT, [facility] #[id number], Partial fill upon patient request... Start Date: [...] Team Personnel Name: Adrienne Kuhn NP Position: [facility] Outreach Member Role: PCP Address: Address: [address] [place] [address]- Care Team Related Persons Name: ARPITA WELCH Address: home [address] [place] [address] Name: AMIRAH VILLAGOMEZ Address: home [address] [place] [address]
--- OUTSIDE RECORDS SUMMARY | 2024-01-05 22:50 | XMS_ITS | Continuity of Care Document ---
Author Organization [facility] Address Unknown Care Team Providers Care Founder And President Name Role Phone Hattie CHAN, Adrienne Thompson Primary Care Physician [place] [facility] [place](s[place] 07/08/21 - 08/07/21 [facility] Allergies, Adverse Reactions, Alerts Substance Reaction Severity [...]
--- OUTSIDE RECORDS SUMMARY | 2024-01-05 22:50 | XMS_ITS | Continuity of Care Document ---
Author Organization [facility] Address [address] [facility], 4[address] [place] [address]- Care Team Providers Care Mold Maker Apprentice Name Role Phone Hattie CHAN, Adrienne Thompson Primary Care Physician [id number] Date(s): 06/09/23 - 07/09/23 [facility] [address] [facility], 4[address] Floor [place], [place] [address] Attending Physician: Farhat Mujica Admitting Physician: AdmtrFarhat Referring Physician: Admtr, Ar8 Allergies, Adverse Reactions, Alerts Substance Reaction Severity Status penicillin rash Active shellfish throat itching Active Medications almotriptan 12.5 mg oral tablet 1 tablet = 12.5 mg, By Mouth, Once, PRN for migraine headache, # 9 tablet, 1 Refills, Soft Stop, 02/19/23 10:42:00 EDT, Tablet, [facility] #[id number], Partial fill upon patient request if the prescription is for a schedule II opioid drug., 160.0... Start Date: 02/19/23 Status: Ordered modafinil 200 mg oral tablet See Instructions, Take 1/2 tab by mouth daily in the morning, may increase to 1 tab by mouth daily if needed, # 30 tablet, 0 Refills, Maintenance, 12/03/22 17:10:00 EDT, [facility] #[id number], Partial fill upon patient request if the prescriptio... Start Date: 12/03/22 Status: Ordered nortriptyline 10 mg oral capsule 20 mg, 2, capsule, By Mouth, Daily at bedtime, start by taking 1 tab nightly for 1 week then increase to 2 tablets nightly., # 60 capsule, Refills 3, Tot. Refills 3, Maintenance, 02/19/23 10:54:00 EDT, Route to Pharmacy Electronically, [facility] Start Date: 02/19/23 Status: Ordered pantoprazole [...] Refills, Soft Stop, 02/19/23 10:53:00 EDT, Tablet, [facility] #[id number], Partial fill upon patient... Start Date: 02/19/23 Status: Ordered Problem List Condition Confirmation Course Effective Dates Status Health St atus Informant HLD (hyperlipidemia) Confirmed Active Migraines Confirmed Active Social History Social History Type Response Smoking Status Never (less than 100 in lifetime) entered on: 11/03/18 Sex Patient Care team information Care Team Personnel Name: Adrienne Kuhn NP Position: [facility] Outreach Member Role: PCP Address: Address: [address] [place] [address]- Care Team Related Persons Name: ARPITA WELCH Address: home [address] [place] [address] Name: JOCELYN JAMES Address: [address] [place] [address] Name: AMIRAH VILLAGOMEZ Address: home [address] [place] [address]
--- OUTSIDE RECORDS SUMMARY | 2024-01-05 22:50 | XMS_ITS | Continuity of Care Document ---
Author Organization [facility] Address Unknown Care Team Providers Care Repulping Supervisor Name Role Phone Hattie CHAN, Adrienne Thompson Primary Care Physician Encounter [facility] Date(s): 08/29/21 - 09/28/21 [facility] Attending Physician: Farhat Mujica Admitting Physician: Farhat [...] tablet, 5 Refills, Maintenance, 08/29/21 11:08:00 EST, [facility][id number], Partial fill upon patient request... Start Date: 08/29/21 Status: Ordered Problem List Condition Effective Dates Status Health Status Inform ant HLD (hyperlipidemia)(Confirmed) Active Migraines(Confirmed) Active Obese class I(Confirmed) Active Social History Social History Type Response Smoking Status Never (less than 100 in lifetime) entered on: 11/03/18 Sex
--- OUTSIDE RECORDS SUMMARY | 2024-01-05 22:50 | XMS_ITS | Continuity of Care Document ---
Author Organization [facility] Elisabet narendra Address [address] [place] [address] [address] [place] [address]- Care Team Providers Care Product Management Internship Name Role Phone Hattie CHAN, Adrienne Thompson Primary Care Physician Encounter [facility] [place] Date(s): 08/03/23 - 08/10/23 [facility] [address] [place], [place] [address] Attending Physician: Chirag Perdomo MD Referring Physician: Not on Staff, Referring MD Allergies, Adverse Reactions, Alerts Substance Reaction Severity Status penicillin rash Active shellfish throat itching Active Medications almotriptan 12.5 mg oral tablet 1 tablet = 12.5 mg, By Mouth, Once, PRN for migraine headache, # 9 tablet, 1 Refills, Soft Stop, 02/19/23 10:42:00 EDT, Tablet, [id number], Partial fill upon patient request if the prescription is for a schedule II opioid drug., 160.0... Start Date: 02/19/23 Status: Ordered modafinil 200 mg oral tablet See Instructions, Take 1/2 tab by mouth daily in the morning, may increase to 1 tab by mouth daily if needed, # 30 tablet, 0 Refills, Maintenance, 12/03/22 17:10:00 EDT, [facility] #[id number], Partial fill upon patient request if the prescriptio... Start Date: 12/03/22 Status: Ordered nortriptyline 10 mg oral capsule 20 mg, 2, capsule, By Mouth, Daily at bedtime, start by taking 1 tab nightly for 1 week then increase to 2 tablets nightly., # 60 capsule, Refills 3, Tot. Refills 3, Maintenance, 02/19/23 10:54:00 EDT, Route to Pharmacy Electronically, [facility] Start Date: 02/19/23 Status: Ordered pantoprazole [...] Refills, Soft Stop, 02/19/23 10:53:00 EDT, Tablet, [facility][id number], Partial fill upon patient... Start Date: 02/19/23 Status: Ordered Problem List Condition Confirmation Course Effective Dates Status Health St atus Informant HLD (hyperlipidemia) Confirmed Active Migraines Confirmed Active Obese class I Confirmed Active Vital Signs Most recent to oldest [Reference Range]: 1 Height 160.02 cm (08/03/23 9:24 AM) Weight 83.64 kg (08/03/23 9:24 AM) Body Mass Index [18.5-24.99 kg/m2] 32.66 kg/m2 *>HHI* (08/03/23 9:24 AM) Social History Social History Type Response Smoking Status Never (less than 100 in lifetime) entered on: 11/03/18 Sex Patient Care team information Care Team Personnel Name: Hattie CHAN, Adrienne Thompson Position: [facility] Outreach Member Role: PCP Address: Address: [address] [place] [address]- Care Team Related Persons Name: ARPITA WELCH Address: home [address] [place] [address] Name: JOCELYN JAMES Address: home [address] [place] [address] Name: AMIRAH VILLAGOMEZ Address: home [address] [place] [address]
--- OUTSIDE RECORDS SUMMARY | 2024-01-05 22:50 | XMS_ITS | Continuity of Care Document ---
Author Organization [facility] Address Unknown Care Team Providers Care Transit Specialist Name Role Phone Hattie CHAN, Adrienne Thompson Primary Care Physician Encounter [place] Date(s): 05/28/21 - 09/25/21 [facility] Attending Physician: Michele Grimm NP Admitting Physician: Alfa CHAN, Michele Referring Physician: Adrienne Kuhn NP Allergies, Adverse Reactions, Alerts Substance Reaction Severity [...] tablet, 5 Refills, Maintenance, 08/29/21 11:08:00 EST, [facility][id number], Partial fill upon patient request... Start Date: 08/29/21 Status: Ordered Problem List Condition Effective Dates Status Health Status Inform ant HLD (hyperlipidemia)(Confirmed) Active Migraines(Confirmed) Active Obese class I(Confirmed) Active Social History Social History Type Response Smoking Status Never (less than 100 in lifetime) entered on: 11/03/18 Sex
--- OUTSIDE RECORDS SUMMARY | 2024-01-05 22:50 | XMS_ITS | Continuity of Care Document ---
Author Organization [facility] Address [address] [facility], 3r d Floor, [address] [place] [address]- Care Team Providers Care Cardiographer Name Role Phone Hattie CHAN, Adrienne Thompson Primary Care Physician [phone] Encounter [facility] Date(s): 05/12/22 - 06/11/22 [facility] [address] [facility], 3rd Floor, [address] [place] [address] Attending Physician: Farhat Mujica Admitting Physician: Farhat Mujica Referring Physician: Farhat Mujica Allergies, Adverse Reactions, Alerts Substance Reaction Severity Status penicillin rash Active shellfish throat itching Active Problem List Condition Confirmation Course Effective Dates Status Health St atus Informant HLD (hyperlipidemia) Confirmed Active Migraines Confirmed Active Obese class I Confirmed Active Social History Social History Type Response Smoking Status Never (less than 100 in lifetime) entered on: 11/03/18 Sex Patient Care team information Personnel Name: Adrienne Kuhn NP Address: Address: [address]
--- OUTSIDE RECORDS SUMMARY | 2024-01-05 22:50 | XMS_ITS | Continuity of Care Document ---
Author Organization [facility] [employer] Address [address] [place] [address], 4t [place] [address]- Care Team Providers Care Collar Tacker Name Role Phone Hattie CHAN, Adrienne Thompson Primary Care Physician [id number] Date(s): 02/16/23 - 05/16/23 [facility] [place] [address] [facility], 4th Floor [place], [place] [address] Attending Physician: Favian Nagy MD Referring Physician: Hattie CHAN, Adrienne Thompson Allergies, Adverse Reactions, Alerts Substance Reaction Severity Status penicillin rash Active shellfish throat itching Active Medications almotriptan 12.5 mg oral tablet 1 tablet = 12.5 mg, By Mouth, Once, PRN for migraine headache, # 9 tablet, 1 Refills, Soft Stop, 02/19/23 10:42:00 EDT, Tablet, [facility] #[id number], Partial fill upon patient request if the prescription is for a schedule II opioid drug., 160.0... Start Date: 02/19/23 Status: Ordered modafinil 200 mg oral tablet See Instructions, Take 1/2 tab by mouth daily in the morning, may increase to 1 tab by mouth daily if needed, # 30 tablet, 0 Refills, Maintenance, 12/03/22 17:10:00 EDT, [facility] #[id number], Partial fill upon patient request if the prescriptio... Start Date: 12/03/22 Status: Ordered nortriptyline 10 mg oral capsule 20 mg, 2, capsule, By Mouth, Daily at bedtime, start by taking 1 tab nightly for 1 week then increase to 2 tablets nightly., # 60 capsule, Refills 3, Tot. Refills 3, Maintenance, 02/19/23 10:54:00 EDT, Route to Pharmacy Electronically, [facility] Start Date: 02/19/23 Status: Ordered pantoprazole [...] Refills, Soft Stop, 02/19/23 10:53:00 EDT, Tablet, [facility] #[id number], Partial fill upon patient... Start Date: 02/19/23 Status: Ordered Problem List Condition Confirmation Course Effective Dates Status Health St atus Informant HLD (hyperlipidemia) Confirmed Active Migraines Confirmed Active Social History Social History Type Response Smoking Status Never (less than 100 in lifetime) entered on: 11/03/18 Sex Patient Care team information Care Team Personnel Name: Hattie CHAN, Adrienne Thompson Position: [facility] Outreach Member Role: PCP Address: Address: [address] [place] [address]- Care Team Related Persons Name: ARPITA WELCH Address: home [address] [place] [address] Name: JOCELYN JAMES Address: [address] [place] [address] Name: AMIRAH VILLAGOMEZ Address: home [address] [place] [address]
--- OUTSIDE RECORDS SUMMARY | 2024-01-05 22:50 | XMS_ITS | Continuity of Care Document ---
Author Organization [facility] Address Unknown Care Team Providers Care Metal Finish Inspector Name Role Phone Hattie CHAN, Adrienne Thompson Primary Care Physician Encounter [facility] [place] [facility] [id number] Date(s): 02/24/22 - 03/26/22 [facility] Allergies, Adverse Reactions, Alerts Substance Reaction Severity Status penicillin rash Active shellfish throat itching Active Problem List Condition Effective Dates Status Health Status Inform ant HLD (hyperlipidemia)(Confirmed) Active Migraines(Confirmed) Active Obese class I(Confirmed) Active Social History Social History Type Response Smoking Status Never (less than 100 in lifetime) entered on: 11/03/18 Sex
--- OUTSIDE RECORDS SUMMARY | 2024-01-05 22:50 | XMS_ITS | Continuity of Care Document ---
Author [facility] [email or web address] Address [address] [place] [address], [address] [place] [address]- Care Team Providers Care Kiln Furniture Caster Name Role Phone Hattie CHAN, Adrienne Thompson Primary Care Physician [phone] Encounter [facility] Date(s): 03/23/23 - 04/22/23 [email or web address] [address] [facility], 4th [place] [address]- Allergies, Adverse Reactions, Alerts Substance Reaction Severity Status penicillin rash Active shellfish throat itching Active Medications almotriptan 12.5 mg oral tablet 1 tablet = 12.5 mg, By Mouth, Once, PRN for migraine headache, # 9 tablet, 1 Refills, Soft Stop, 02/19/23 10:42:00 EDT, Tablet, [facility] #[id number], Partial fill upon patient request if the prescription is for a schedule II opioid drug., 160.0... Start Date: 02/19/23 Status: Ordered modafinil 200 mg oral tablet See Instructions, Take 1/2 tab by mouth daily in the morning, may increase to 1 tab by mouth daily if needed, # 30 tablet, 0 Refills, Maintenance, 12/03/22 17:10:00 EDT, [facility][id number], Partial fill upon patient request if the prescriptio... Start Date: 12/03/22 Status: Ordered nortriptyline 10 mg oral capsule 20 mg, 2, capsule, By Mouth, Daily at bedtime, start by taking 1 tab nightly for 1 week then increase to 2 tablets nightly., # 60 capsule, Refills 3, Tot. Refills 3, Maintenance, 02/19/23 10:54:00 EDT, Route to Pharmacy Electronically, [facility] Start Date: 02/19/23 Status: Ordered pantoprazole [...] Refills, Soft Stop, 02/19/23 10:53:00 EDT, Tablet, [facility][id number], Partial fill upon patient... Start Date: 02/19/23 Status: Ordered Problem List Condition Confirmation Course Effective Dates Status Health St atus Informant HLD (hyperlipidemia) Confirmed Active Migraines Confirmed Active Social History Social History Type Response Smoking Status Never (less than 100 in lifetime) entered on: 11/03/18 Sex Patient Care team information Care Team Personnel Name: Adrienne Kuhn NP Position: [facility] Outreach Member Role: PCP Address: Address: [address] [place] [address]- Care Team Related Persons Name: ARPITA WELCH Address: home [address] [place] [address] Name: JOCELYN JAMES Address: [address] [place] [address] Name: AMIRAH VILLAGOMEZ Address: home [address] [place] [address]
--- OUTSIDE RECORDS SUMMARY | 2024-01-05 22:50 | XMS_ITS | Continuity of Care Document ---
Author Organization [facility] Address [address] [place] [address]- Care Team Providers Care Valve Setter Name Role Phone Hattie CHAN, Adrienne Thompson Primary Care Physician [phone] En[place] [facility] Date(s): 04/03/22 - 04/03/[address] [address] Discharge Disposition: A-D/C Home Attending Physician: Kell Funk MD Admitting Physician: Kell Funk MD Referring Physician: Kell Funk MD Allergies, Adverse Reactions, Alerts Substance Reaction Severity Status penicillin rash Active shellfish throat itching Active Medications No Known Medications Problem List Condition Effective Dates Status Health Status Inform ant HLD (hyperlipidemia)(Confirmed) Active Migraines(Confirmed) Active Obese class I(Confirmed) Active Vital Signs Most recent to oldest [Reference Range]: 1 2 3 Height 160.02 cm (04/03/22 2:09 PM) 160.02 cm (04/02/22 4:51 PM) Weight 82.5 kg (04/03/22 2:09 PM) 83.64 kg (04/02/22 4:51 PM) Oxygen Saturation [94-100 %] 100 % (04/03/22 4:30 PM) 98 % (04/03/22 4:15 PM) 100 % (04/03/22 4:00 PM) Pulse Rate [55-90 bpm] 82 bpm (04/03/22 2:09 PM) Body Mass Index [18.5-24.99] 32.22 *>HHI* (04/03/22 2:09 PM) 32.66 *>HHI* (04/02/22 4:51 PM) Blood Pressure [90-138/55-84 mm Hg] 127/75mm Hg (04/03/22 4:30 PM) 130/79mm Hg (04/03/22 4:15 PM) 130/79mm Hg (04/03/22 4:00 PM) Respiratory Rate [16-30 br/min] 20 br/min (04/03/22 4:30 PM) 18 br/min (04/03/22 4:15 PM) 18 br/min (04/03/22 4:00 PM) Temperature [96.8-100.4 DegF] 99.0 DegF (04/03/22 4:30 PM) 99.1 DegF (04/03/22 4:00 PM) 98.9 DegF (04/03/22 2:09 PM) Mode of Delivery (Oxygen) Room air (04/03/22 4:30 PM) Room air (04/03/22 4:15 PM) Room air (04/03/22 4:00 PM) Blood pressure sites Arm, right (04/03/22 4:00 PM) Arm, left (04/03/22 2:09 PM) Temperature Route Temporal (04/03/22 4:00 PM) Temporal (04/03/22 2:09 PM) Dry Weight 83.64 kg (04/02/22 4:51 PM) Weight Obtained Via Patient/family state d (04/02/22 4:51 PM) Social History Social History Type Response Smoking Status Never (less than 100 in lifetime) entered on: 11/03/18 Sex
--- OUTSIDE RECORDS SUMMARY | 2024-01-05 22:50 | XMS_ITS | Continuity of Care Document ---
Author Organization [facility] Address [address] [place] [address]- Care Team Providers Care Roaster Helper Name Role Phone Hattie CHAN, Adrienne Thompson Primary Care Physician Encounter [facility] Date(s): 11/15/21 - 12/15/21 [facility] [address] [address] Allergies, Adverse Reactions, Alerts Substance Reaction Severity Status penicillin rash Active shellfish throat itching Active Problem List Condition Effective Dates Status Health Status Inform ant HLD (hyperlipidemia)(Confirmed) Active Migraines(Confirmed) Active Obese class I(Confirmed) Active Social History Social History Type Response Smoking Status Never (less than 100 in lifetime) entered on: 11/03/18 Sex
--- OUTSIDE RECORDS SUMMARY | 2024-01-05 22:50 | XMS_ITS | Continuity of Care Document ---
Author Organization [facility] Address [address] [place] [address]- Care Team Providers Care Publication Editor Name Role Phone Hattie CHAN, Adrienne Thompson Primary Care Physician [phone] [place] [facility] [place](s[place] 12/05/21 - 03/18/22 [facility] [address] [place] [id number] Discharge Disposition: A-D/C Home Attending Physician: Aaron Marcano MD Admitting Physician: Aaron Marcano MD Referring Physician: Adrienne Kuhn NP Allergies, Adverse Reactions, Alerts Substance Reaction Severity Status penicillin rash Active shellfish throat itching Active Problem List Condition Effective Dates Status Health Status Inform ant HLD (hyperlipidemia)(Confirmed) Active Migraines(Confirmed) Active Obese class I(Confirmed) Active Vital Signs Most recent to oldest [Reference Range]: 1 Height 160 cm (01/15/22 2:17 PM) Weight 84.8 kg (01/15/22 2:17 PM) Pulse Rate [55-90 bpm] 74 bpm (01/15/22 2:17 PM) Body Mass Index [18.5-24.99] 33.13 *>HHI* (01/15/22 2:17 PM) Blood Pressure [90-138/55-84 mm Hg] 132/ 82mm Hg (01/15/22 2:17 PM) Temperature [96.8-100.4 DegF] 97.8 DegF (01/15/22 2:17 PM) Blood pressure sites Arm, right (01/15/22 2:17 PM) Temperature Route Temporal (01/15/22 2:17 PM) Dry Weight 84.8 kg (01/15/22 2:17 PM) Weight Obtained Via Standing scale (01/15/22 2:17 PM) Dry Weight Obtained Via Standing scale (01/15/22 2:17 PM) Social History Social History Type Response Smoking Status Never (less than 100 in lifetime) entered on: 11/03/18 Sex
--- OUTSIDE RECORDS SUMMARY | 2024-01-05 22:50 | XMS_ITS | Continuity of Care Document ---
Author Organization [facility] Address [address] [place] [address]- Care Team Providers Care Cylinder Loader Name Role Phone Hattie CHAN, Adrienne Thompson Primary Care Physician [phone] [place] [facility] [place] 08/28/21 - 12/05/21 [facility] [address] [place] [address] Discharge Disposition: A-D/C Home Attending Physician: Aaron [...]
--- OUTSIDE RECORDS SUMMARY | 2024-01-05 22:51 | XMS_ITS | Continuity of Care Document ---
Author Organization [facility] Address [address] [place] [address]- Care Team Providers Care Peoplesoft Hcm Developer Name Role Phone Hattie CHAN, Adrienne Thompson Primary Care Physician En[facility] [place] [place] Date(s): 06/28/22 - 07/28/22 [facility] [address] [place] [address]- Allergies, Adverse Reactions, Alerts Substance Reaction Severity Status penicillin rash Active shellfish throat itching Active Medications rizatriptan 5 mg oral tablet 1 tablet = 5 mg, By Mouth, Daily, Take at onset of migraine. may repeat in 2 hours if needed, do not exceed 2 doses in 24 hours, # 9 tablet, 5 Refills, Maintenance, 06/18/22 12:12:00 EDT, [facility] #[id number], Partial fill upon patient request... Start Date: [...] Team Personnel Name: Adrienne Kuhn NP Position: [facility] Outreach Member Role: PCP Address: Address: [address] [place] [address]- Care Team Related Persons Name: ARPITA WELCH Address: home [address] [place] [address] Name: AMIRAH VILLAGOMEZ Address: home [address] [place] [address]
--- OUTSIDE RECORDS SUMMARY | 2024-01-05 22:51 | XMS_ITS | Continuity of Care Document ---
Author Organization [facility] Address [address] [place] [address]- Care Team Providers Care Registered Nurse Post Partum Name Role Phone Hattie CHAN, Adrienne Thompson Primary Care Physician Encounter [facility] Date(s): 11/25/22 - 01/07/[address] [address] Attending Physician: Kelsea Cat Admitting Physician: Kelsea Cat Referring Physician: Kelsea Cat Allergies, Adverse Reactions, Alerts Substance Reaction Severity Status penicillin rash Active shellfish throat itching Active Medications modafinil 200 mg oral tablet See Instructions, Take 1/2 tab by mouth daily in the morning, may increase to 1 tab by mouth daily if needed, # 30 tablet, 0 Refills, Maintenance, 12/03/22 17:10:00 EDT, [facility][id number], Partial fill upon patient request if the [...] tablet, 5 Refills, Maintenance, 06/18/22 12:12:00 EDT, [facility][id number], Partial fill upon patient request... Start Date: [...] Personnel Name: Hattie CHAN, Adrienne Thompson Position: [facility] Outreach Member Role: PCP Address: Address: [address] [place] [address]- Care Team Related Persons Name: ARPITA WELCH Address: home [address] [place] [address] Name: AMIRAH VILLAGOMEZ Address: home [address] [place] [address]
--- OUTSIDE RECORDS SUMMARY | 2024-01-05 22:51 | XMS_ITS | Continuity of Care Document ---
Author Organization [facility] Address [address] [facility], 3r d Floor, [address] [place] [address]- Care Team Providers Care Assistant Account Manager Name Role Phone Hattie CHAN, Adrienne Thompson Primary Care Physician [phone] [place] [facility] [place] 03/24/23 - 09/12/23 [facility] [address], [address] Floor, [address] [place] [address] Attending Physician: Nelson Alaniz MD Admitting Physician: Nelson Alaniz MD Allergies, Adverse Reactions, Alerts Substance Reaction Severity Status penicillin rash Active shellfish throat itching Active Medications almotriptan 12.5 mg oral tablet 1 tablet = 12.5 mg, By Mouth, Once, PRN for migraine headache, # 9 tablet, 1 Refills, Soft Stop, 02/19/23 10:42:00 EDT, Tablet, [facility] #[id number], Partial fill upon patient request if the prescription is for a schedule II opioid drug., 160.0... Start Date: 02/19/23 Status: Ordered modafinil 200 mg oral tablet See Instructions, Take 1/2 tab by mouth daily in the morning, may increase to 1 tab by mouth daily if needed, # 30 tablet, 0 Refills, Maintenance, 12/03/22 17:10:00 EDT, [facility] #[id number], Partial fill upon patient request if the prescriptio... Start Date: 12/03/22 Status: Ordered nortriptyline 10 mg oral capsule 20 mg, 2, capsule, By Mouth, Daily at bedtime, start by taking 1 tab nightly for 1 week then increase to 2 tablets nightly., # 60 capsule, Refills 3, Tot. Refills 3, Maintenance, 02/19/23 10:54:00 EDT, Route to Pharmacy Electronically, [facility] Start Date: 02/19/23 Status: Ordered pantoprazole [...] Refills, Soft Stop, 02/19/23 10:53:00 EDT, Tablet, [facility] #[id number], Partial fill upon patient... Start Date: 02/19/23 [...] Personnel Name: Hattie CHAN, Adrienne Thompson Position: [facility] Outreach Member Role: PCP Address: Address: [address] [place] [address]- Care Team Related Persons Name: ARPITA WELCH Address: home [address] [place] [address] Name: JOCELYN JAMES Address: [address] [place] [address] Name: AMIRAH VILLAGOMEZ Address: home [address] [place] [address]
--- OUTSIDE RECORDS SUMMARY | 2024-01-05 22:51 | XMS_ITS | Continuity of Care Document ---
Author Organization [facility] Address [address] [place] [address]- Care Team Providers Care Asphalt Plant Laborer Name Role Phone Hattie CHAN, Adrienne Thompson Primary [id number] - 11/22/22 [facility] [address] [place] [address]- Attending Physician: Jay Mahajan MD Admitting Physician: Jay Mahajan MD Referring Physician: Adrienne Kuhn NP Allergies, [...] tablet, 5 Refills, Maintenance, 06/18/22 12:12:00 EDT, [facility] #[id number], Partial fill upon patient request... Start Date: [...] S Outreach Member Role: PCP Address: Address: [address] [place] [address]- Care Team Related Persons Name: ARPITA WELCH Address: home [address] [place] [address] Name: AMIRAH VILLAGOMEZ Address: home [address] [place] [address]
--- OUTSIDE RECORDS SUMMARY | 2024-01-05 22:51 | XMS_ITS | Continuity of Care Document ---
Author Organization [facility] ter Address [address] [place] [address]- Care Team Providers Care Data Entry Clerk Name Role Phone Hattie CHAN, Adrienne Thompson Primary Care Physician Encounter [facility] [place] Date(s): 01/24/22 - 01/24/[address] [address] Discharge Disposition: A-D/C Home Attending Physician: Kell [...] oldest [Reference Range]: 1 2 3 Height 160 cm (01/24/22 6:29 AM) 160 cm (10/09/21 9:16 AM) Weight 84.8 kg (01/24/22 6:29 AM) 83.6 kg (10/09/21 9:16 AM) Oxygen Saturation [94-100 %] 100 % (01/24/22 8:45 AM) 100 % (01/24/22 8:30 AM) 100 % (01/24/22 8:15 AM) Pulse Rate [55-90 bpm] 83 bpm (01/24/22 6:29 AM) Body Mass Index [18.5-24.99] 33.13 *>HHI* (01/24/22 6:29 AM) 32.66 *>HHI* (10/09/21 9:16 AM) Blood Pressure [90-138/55-84 mm Hg] 112/61mm Hg (01/24/22 8:45 AM) 115/65mm Hg (01/24/22 8:30 AM) 121/72mm Hg (01/24/22 8:15 AM) Respiratory Rate [16-30 br/min] 19 br/min (01/24/22 8:45 AM) 19 br/min (01/24/22 8:30 AM) 20 br/min (01/24/22 8:15 AM) Temperature [96.8-100.4 DegF] 98.8 DegF (01/24/22 8:15 AM) 98.6 DegF (01/24/22 6:29 AM) Mode of Delivery (Oxygen) Room air (01/24/22 8:45 AM) Room air (01/24/22 8:30 AM) Room air (01/24/22 8:15 AM) Blood pressure sites Arm, right (01/24/22 8:45 AM) Arm, right (01/24/22 8:30 AM) Arm, right (01/24/22 8:15 AM) Temperature Route Temporal (01/24/22 8:15 AM) Temporal (01/24/22 6:29 AM) Dry Weight 84.8 kg (01/24/22 6:29 AM) 83.6 kg (10/09/21 9:16 AM) Weight Obtained Via Standing scale (01/24/22 6:29 AM) Patient/family stated (10/09/21 9:16 AM) Dry Weight Obtained Via Standing scale (01/24/22 6:29 AM) Patient/family stated (10/09/21 9:16 AM) Social History Social History Type Response Smoking Status Never (less than 100 in lifetime) entered on: 11/03/18 Sex
--- OUTSIDE RECORDS SUMMARY | 2024-01-05 22:51 | XMS_ITS | Continuity of Care Document ---
Author Organization [facility] Address [address] [place] [address]- Care Team Providers Care Lean Manufacturing Specialist Name Role Phone Hattie CHAN, Adrienne Thompson Primary Care Physician [phone] Encounter [facility] Date(s): 04/04/22 - 05/04/22 [facility] [address] [address] Attending Physician: Farhat Mujica Admitting Physician: Farhat [...]
--- OUTSIDE RECORDS SUMMARY | 2024-01-05 22:51 | XMS_ITS | Continuity of Care Document ---
Author Organization [facility] Address [address] [place] [address]- Care Team Providers Care Drafter Chief Design Name Role Phone Hattie CHAN, Adrienne Thompson Primary Care Physician [phone] [id number]/11/[facility] - 01/09/[address] [address] Attending Physician: Marlin Welch MD [...] tablet, 0 Refills, Maintenance, 12/03/22 17:10:00 EDT, [facility] #[id number], Partial fill upon patient request if the [...] tablet, 5 Refills, Maintenance, 06/18/22 12:12:00 EDT, [facility] #[id number], Partial fill upon patient request... Start Date: [...] Personnel Name: Hattie CHAN, Adrienne Thompson [facility] Out[facility] Member Role: PCP Address: Address: [address] [place] [address]- Care Team Related Persons Name: ARPITA WELCH Address: home [address] [place] [address] Name: AMIRAH VILLAGOMEZ Address: home [address] [place] [address]
--- OUTSIDE RECORDS SUMMARY | 2024-01-05 22:51 | XMS_ITS | Continuity of Care Document ---
Author Organization [facility] Address Unknown Care Team Providers Care Kapok Machine Operator Name Role Phone Hattie CHAN, Adrienne Thompson Primary Care Physician Encounter [facility] [id number] Date(s): 07/16/21 - 07/23/21 [facility] Encounter Diagnosis Pilar cysts(Discharge Diagnosis) - 07/16/21 Attending Physician: Buddy Cantu Referring Physician: Adrienne Kuhn NP Allergies, Adverse Reactions, Alerts Substance Reaction Severity Status penicillin rash Active Medications CeleBREX 100 mg oral capsule 1 capsule = 100 mg, By Mouth, 2 times a day, # 30 capsule, 0 Refills, Maintenance, 11/03/18 13:15:46 EST, Capsule Start Date: 11/03/18 Status: Ordered Problem List Condition Effective Dates Status Health Status Inform ant HLD (hyperlipidemia)(Confirmed) Active Migraines(Confirmed) Active Diagnosis Diagnosis Type Effective Dates Health Status Clini sunil Service Informant Pilar cysts Discharge Diagnosis 07/16/21 Social History Social History Type Response Smoking Status Never (less than 100 in lifetime) entered on: 11/03/18 Sex
--- OUTSIDE RECORDS SUMMARY | 2024-01-05 22:51 | XMS_ITS | Continuity of Care Document ---
Author Organization [facility] Address Unknown Care Team Providers Care Infectious Disease Technician Name Role Phone Hattie CHAN, Adrienne Thompson Primary Care Physician [place] [facility] [place](s): 04/17/22 - 04/24/22 [facility] Attending Physician: Kell Funk MD Referring Physician: Adrienne Kuhn NP Allergies, Adverse Reactions, Alerts Substance Reaction Severity Status penicillin rash Active shellfish throat itching Active Problem List Condition Effective Dates Status Health Status Inform ant HLD (hyperlipidemia)(Confirmed) Active Migraines(Confirmed) Active Obese class I(Confirmed) Active Vital Signs Most recent to oldest [Reference Range]: 1 Pulse Rate [55-90 bpm] 75 bpm (04/17/22 3:31 PM) Blood Pressure [90-138/55-84 mm Hg] 129/ 85mm Hg (04/17/22 3:31 PM) Temperature [96.8-100.4 DegF] 96.5 DegF *L* (04/17/22 3:31 PM) Blood pressure sites Arm, right (04/17/22 3:31 PM) Temperature Route Temporal (04/17/22 3:31 PM) Social History Social History Type Response Smoking Status Never (less than 100 in lifetime) entered on: 11/03/18 Sex
--- OUTSIDE RECORDS SUMMARY | 2024-01-05 22:51 | XMS_ITS | Continuity of Care Document ---
Author Organization [facility] Address [address], [address] Floor, [address] [place] [address]- Care Team Providers Care Ec Teacher Name Role Phone Hattie CHAN, Adrienne Thompson Primary Care Physician Encounter [facility] Date(s): 10/21/22 - 11/20/22 [facility] [address], 3rd Floor, [address] [place] [id number] Allergies, Adverse Reactions, Alerts Substance [...] tablet, 5 Refills, Maintenance, 06/18/22 12:12:00 EDT, [facility] #[id number], Partial fill upon patient request... Start Date: [...] S Outreach Member Role: PCP Address: Address: [address] [place] [address]- [place] Care Team Related Persons Name: ARPITA WELCH Address: home [address] [place] [address] Name: AMIRAH VILLAGOMEZ Address: home [address] [place] [address]
--- OUTSIDE RECORDS SUMMARY | 2024-01-05 22:51 | XMS_ITS | Continuity of Care Document ---
Author Organization [facility] Address Unknown Care Team Providers Care Director Of Customer Service Name Role Phone Hattie CHAN, Adrienne Thompson Primary Care Physician [phone] Encounter [facility] [place] Date(s): 07/08/21 - 08/07/21 [facility] Allergies, Adverse Reactions, Alerts Substance [...]
--- OUTSIDE RECORDS SUMMARY | 2024-01-05 22:51 | XMS_ITS | Continuity of Care Document ---
Author Organization [facility] Address [address] [place] [address]- Care Team Providers Care Principal Archaeologist Name Role Phone Hattie CHAN, Adrienne Thompson Primary Care Physician Encounter [facility] ACCT R [id number] Date(s): 12/26/22 - 01/25/23 [facility] [address] [address] Attending Physician: Farhat Mujica Admitting Physician: AdmtrFarhat Referring Physician: Admtr, Ar8 Allergies, Adverse Reactions, Alerts Substance Reaction Severity Status penicillin rash Active shellfish throat itching Active Medications modafinil 200 mg oral tablet See Instructions, Take 1/2 tab by mouth daily in the morning, may increase to 1 tab by mouth daily if needed, # 30 tablet, 0 Refills, Maintenance, 12/03/22 17:10:00 EDT, [facility] #[id number], Partial fill upon patient request if the [...] tablet, 5 Refills, Maintenance, 06/18/22 12:12:00 EDT, [facility] #[id number], Partial fill upon patient request... Start Date: [...] Personnel Name: Hattie CHAN, Adrienne Thompson Position: [facility] Outreach Member Role: PCP Address: Address: [address] [place] [address]- Care Team Related Persons Name: ARPITA WELCH Address: home [address] [place] [address] Name: JOCELYN JAMES Address: [address] [place] [address] Name: AMIRAH VILLAGOMEZ Address: home [address] [place] [address]
--- OUTSIDE RECORDS SUMMARY | 2024-01-05 22:51 | XMS_ITS | Continuity of Care Document ---
Author Organization [facility] Address Unknown Care Team Providers Care Coring Machine Operator Name Role Phone Hattie CHAN, Adrienne Thompson Primary Care Physician [phone] Encounter [facility] Date(s): 05/29/21 - 06/05/21 [facility] Encounter Diagnosis Scalp lump(Discharge Diagnosis) - 05/29/21 Attending Physician: Buddy Cantu Referring Physician: Adrienne [...] Dates Health Status Clini sunil Service Informant Scalp lump Discharge Diagnosis 05/29/21 Procedures Procedure Date Related Diagnosis Body Site Status Extraction of wisdom tooth Completed Vital Signs Most recent to oldest [Reference Range]: 1 Height 165 cm (05/29/21 9:32 AM) Weight 81.2 kg (05/29/21 9:32 AM) Pulse Rate [55-90 bpm] 73 bpm (05/29/21 9:32 AM) Body Mass Index [18.5-24.99] 29.83 *H* (05/29/21 9:32 AM) Blood Pressure [90-138/55-84 mm Hg] 130/ 90mm Hg (05/29/21 9:32 AM) Temperature [96.8-100.4 DegF] 97.4 DegF (05/29/21 9:32 AM) Blood pressure sites Arm, left (05/29/21 9:32 AM) Temperature Route Temporal (05/29/21 9:32 AM) Weight Obtained Via Standing scale (05/29/21 9:32 AM) Social History Social History Type Response Smoking Status Never (less than 100 in lifetime) entered on: 11/03/18 Sex
--- OUTSIDE RECORDS SUMMARY | 2024-01-05 22:51 | XMS_ITS | Continuity of Care Document ---
Author Organization [facility] Address [address] [place] [address], 4t [place] [address]- Care Team Providers Care Floor Covering Printer Name Role Phone Hattie CHAN, Adrienne Thompson Primary Care Physician Encounter [facility] [place] Date(s): 01/27/23 - 02/26/23 [facility] [employer] YvonneElement Powers [facility] [address] [facility], 4th [address] [place], [place] [address] Allergies, Adverse Reactions, Alerts Substance Reaction Severity Status penicillin rash Active shellfish throat itching Active Medications almotriptan 12.5 mg oral tablet 1 tablet = 12.5 mg, By Mouth, Once, PRN for migraine headache, # 9 tablet, 1 Refills, Soft Stop, 02/19/23 10:42:00 EDT, Tablet, [facility] #[id number], Partial fill upon patient request if the prescription is for a schedule II opioid drug., 160.0... Start Date: 02/19/23 Status: Ordered modafinil 200 mg oral tablet See Instructions, Take 1/2 tab by mouth daily in the morning, may increase to 1 tab by mouth daily if needed, # 30 tablet, 0 Refills, Maintenance, 12/03/22 17:10:00 EDT, [facility] #[id number], Partial fill upon patient request if the prescriptio... Start Date: 12/03/22 Status: Ordered nortriptyline 10 mg oral capsule 20 mg, 2, capsule, By Mouth, Daily at bedtime, start by taking 1 tab nightly for 1 week then increase to 2 tablets nightly., # 60 capsule, Refills 3, Tot. Refills 3, Maintenance, 02/19/23 10:54:00 EDT, Route to Pharmacy Electronically, [facility] Start Date: 02/19/23 Status: Ordered pantoprazole [...] Refills, Soft Stop, 02/19/23 10:53:00 EDT, Tablet, [facility] #[id number], Partial fill upon patient... Start Date: 02/19/23 Status: Ordered Problem List Condition Confirmation Course Effective Dates Status Health St atus Informant HLD (hyperlipidemia) Confirmed Active Migraines Confirmed Active Social History Social History Type Response Smoking Status Never (less than 100 in lifetime) entered on: 11/03/18 Sex Patient Care team information Care Team Personnel Name: Adrienne Kuhn NP Position: [facility] Outreach Member Role: PCP Address: Address: [address] [place] [address]- Care Team Related Persons Name: ARPITA WELCH Address: home [address] [place] [address] Name: JOCELYN JAMES Address: [address] [place] [address] Name: AMIRAH VILLAGOMEZ Address: home [address] [place] [address]
--- OUTSIDE RECORDS SUMMARY | 2024-01-05 22:51 | XMS_ITS | Continuity of Care Document ---
Author Organization [facility] Address Unknown Care Team Providers Care Security Door Installer Name Role Phone Hattie CHAN, Adrienne Thompson Primary [id number]23[facility] - 03/29/22 [facility] Attending Physician: Kelsea Cat Admitting Physician: Kelsea Cat Referring Physician: Adrienne Kuhn NP Allergies, Adverse [...]
--- OUTSIDE RECORDS SUMMARY | 2024-01-05 22:51 | XMS_ITS | Continuity of Care Document ---
Author Organization [facility] Address [address] [place] [address]- Care Team Providers Care Refrigeration Lead Name Role Phone Adrienne Kuhn NP Primary Care Physician [phone] Encounter [facility] [place] Date(s): 10/23/22 - 11/22/22 [facility] [address] [place] [address]- Attending Physician: Farhat Mujica Admitting Physician: Farhat [...] tablet, 5 Refills, Maintenance, 06/18/22 12:12:00 EDT, [facility] #[id number], Partial fill upon patient request... Start Date: [...] Team Personnel Name: Adrienne Kuhn NP Position: [facility] Outreach Member Role: PCP Address: Address: [address] [place] [address]- [place] Care Team Related Persons Name: ARPITA WELCH Address: home [address] [place] [address] Name: AMIRAH VILLAGOMEZ Address: home [address] [place] [address]
--- OUTSIDE RECORDS SUMMARY | 2024-01-05 22:51 | XMS_ITS | Continuity of Care Document ---
Author Organization [facility] Address [address] [place] [address]- Care Team Providers Care Ingredient Specialist Name Role Phone Hattie CHAN, Adrienne Thompson Primary Care Physician Encounter [facility] Date(s): 03/25/22 - 06/08/22 [facility] [address] [address]- [place] Attending Physician: Marlin Jasso MD Admitting Physician: Marlin Jasso MD Referring Physician: Kelsea Cat Allergies, Adverse Reactions, Alerts Substance Reaction Severity Status penicillin rash Active shellfish throat itching Active Problem List Condition Effective Dates Status Health Status Inform ant HLD (hyperlipidemia)(Confirmed) Active Migraines(Confirmed) Active Obese class I(Confirmed) Active Social History Social History Type Response Smoking Status Never (less than 100 in lifetime) entered on: 11/03/18 Sex Care Team Personnel Name: Adrienne Kuhn NP Address: [address] [place] [address]
--- OUTSIDE RECORDS SUMMARY | 2024-01-05 22:51 | XMS_ITS | Continuity of Care Document ---
Author Organization [facility] Address [address] [place] [address] [address] [place] [address]- Care Team Providers Care Hand Lacer Name Role Phone Hattie CHAN, Adrienne Thompson Primary Care Physician [facility] [place] Date(s): 08/03/23 - 09/02/23 [facility] [address] [place], [place] [address] Attending Physician: Admtr, Manjinder8 Admitting Physician: Admtr, Ar8 Referring Physician: Admtr, Ar8 Allergies, Adverse Reactions, Alerts Substance Reaction Severity Status penicillin rash Active shellfish throat itching Active Medications almotriptan 12.5 mg oral tablet 1 tablet = 12.5 mg, By Mouth, Once, PRN for migraine headache, # 9 tablet, 1 Refills, Soft Stop, 02/19/23 10:42:00 EDT, Tablet, [facility] #[id number], Partial fill upon patient request if the prescription is for a schedule II opioid drug., 160.0... Start Date: 02/19/23 Status: Ordered modafinil 200 mg oral tablet See Instructions, Take 1/2 tab by mouth daily in the morning, may increase to 1 tab by mouth daily if needed, # 30 tablet, 0 Refills, Maintenance, 12/03/22 17:10:00 EDT, [facility] #[id number], Partial fill upon patient request if the prescriptio... Start Date: 12/03/22 Status: Ordered nortriptyline 10 mg oral capsule 20 mg, 2, capsule, By Mouth, Daily at bedtime, start by taking 1 tab nightly for 1 week then increase to 2 tablets nightly., # 60 capsule, Refills 3, Tot. Refills 3, Maintenance, 02/19/23 10:54:00 EDT, Route to Pharmacy Electronically, [facility] Start Date: 02/19/23 Status: Ordered pantoprazole [...] Refills, Soft Stop, 02/19/23 10:53:00 EDT, Tablet, [facility] #[id number], Partial fill upon patient... Start Date: 02/19/23 Status: Ordered Problem List Condition Confirmation Course Effective Dates Status Health St atus Informant HLD (hyperlipidemia) Confirmed Active Migraines Confirmed Active Obese class I Confirmed Active Social History Social History Type Response Smoking Status Never (less than 100 in lifetime) entered on: 11/03/18 Sex Patient Care team information Care Team Personnel Name: Adrienne Kuhn NP Position: [facility] Outreach Member Role: PCP Address: Address: [address] [place] [address]- Care Team Related Persons Name: ARPITA WELCH Address: home [address] [place] [address] Name: JOCELYN JAMES Address: [address] [place] [address] Name: AMIRAH VILLAGOMEZ Address: home [address] [place] [address]
--- OUTSIDE RECORDS SUMMARY | 2024-01-05 22:51 | XMS_ITS | Continuity of Care Document ---
Author Organization [facility] Address [address] [place] [address]- Care Team Providers Care Forestry Foreman Name Role Phone Adrienne Kuhn NP Primary Care Physician Encounter [facility] Date(s): 05/07/22 - 06/06/22 [facility] [address] [address]- [place] Allergies, Adverse Reactions, Alerts Substance Reaction Severity Status penicillin rash Active shellfish throat itching Active Problem List Condition Effective Dates Status Health Status Inform ant HLD (hyperlipidemia)(Confirmed) Active Migraines(Confirmed) Active Obese class I(Confirmed) Active Social History Social History Type Response Smoking Status Never (less than 100 in lifetime) entered on: 11/03/18 Sex Care Team Personnel Name: Adrienne Kuhn NP Address: [facility] [place], [place] [address]
--- OUTSIDE RECORDS SUMMARY | 2024-01-05 22:51 | XMS_ITS | Continuity of Care Document ---
Author Organization [facility] Address Unknown Care Team Providers Care Chemical Economist Name Role Phone Hattie CHAN, Adrienne Thompson Primary Care Physician Encounter [facility] [place] Date(s): 02/07/22 - 02/14/22 [facility] Attending Physician: Kell Funk MD Referring Physician: Adrienne Kuhn NP Allergies, Adverse Reactions, Alerts Substance Reaction Severity Status penicillin rash Active shellfish throat itching Active Problem List Condition Effective Dates Status Health Status Inform ant HLD (hyperlipidemia)(Confirmed) Active Migraines(Confirmed) Active Obese class I(Confirmed) Active Vital Signs Most recent to oldest [Reference Range]: 1 Pulse Rate [55-90 bpm] 67 bpm (02/07/22 10:33 AM) Blood Pressure [90-138/55-84 mm Hg] 135/ 88mm Hg (02/07/22 10:33 AM) Temperature [96.8-100.4 DegF] 97.9 DegF (02/07/22 10:33 AM) Blood pressure sites Arm, right (02/07/22 10:33 AM) Temperature Route Temporal (02/07/22 10:33 AM) Social History Social History Type Response Smoking Status Never (less than 100 in lifetime) entered on: 11/03/18 Sex
--- OUTSIDE RECORDS SUMMARY | 2024-01-05 22:51 | XMS_ITS | Continuity of Care Document ---
Author Organization [facility] Address [address] [place] [address] [address] [place] [address]- Care Team Providers Care Political Advisor Name Role Phone Adrienne Kuhn NP Primary Care Physician [phone] Encounter [facility] Date(s): 04/17/22 - 05/17/22 [facility] [address] [place] [address]- [place] Attending Physician: Admtr, Farhat Admitting Physician: Admtr, Ar8 Referring Physician: Admtr, [...] Team Personnel Name: Adrienne Kuhn NP Address: [address] [place] [address]
--- OUTSIDE RECORDS SUMMARY | 2024-01-05 22:51 | XMS_ITS | Continuity of Care Document ---
Author Organization [facility] Elisabet narendra Address [address] [place] [address] [address] [place] [address]- Care Team Providers Care Tandem Mill Sticker Name Role Phone Hattie CHAN, Adrienne Thompson Primary Care Physician [place] [facility] [place]s): 08/21/21 - 08/28/21 [facility] [address] [place] [address] Drive [address] [place], [place] [address] Attending Physician: Noah RIOS MD, Hector Valladares Referring Physician: Buddy Cantu Allergies, Adverse Reactions, Alerts Substance Reaction Severity [...] oldest [Reference Range]: 1 Height 165 cm (08/21/21 1:45 PM) Weight 86.54 kg (08/21/21 1:45 PM) Body Mass Index [18.5-24.99] 31.79 *>HHI* (08/21/21 1:45 PM) Temperature [96.8-100.4 DegF] 98.6 DegF (08/21/21 1:45 PM) Temperature Route Temporal (08/21/21 1:45 PM) Weight Obtained Via Standing scale (08/21/21 1:45 PM) Social History Social History Type Response Smoking Status Never (less than 100 in lifetime) entered on: 11/03/18 Sex
--- OUTSIDE RECORDS SUMMARY | 2024-01-05 22:51 | XMS_ITS | Continuity of Care Document ---
Author Organization [facility] Address [address], [address] d Floor, [address] [place] [address]- Care Team Providers Care Certified Medical Asst Name Role Phone Hattie CHAN, Adrienne Thompson Primary Care Physician [facility] [facility] Date(s): 06/16/22 - 07/16/22 [facility] [address] [facility], 3rd Floor, [address] [place] [address] Allergies, Adverse Reactions, Alerts Substance Reaction Severity Status penicillin rash Active shellfish throat itching Active Medications rizatriptan 5 mg oral tablet 1 tablet = 5 mg, By Mouth, Daily, Take at onset of migraine. may repeat in 2 hours if needed, do not exceed 2 doses in 24 hours, # 9 tablet, 5 Refills, Maintenance, 06/18/22 12:12:00 EDT, [facility] #[id number], Partial fill upon patient request... Start Date: [...] Name: Adrienne Kuhn NP Address: Address: [address] [place], [place] [address]
--- OUTSIDE RECORDS SUMMARY | 2024-01-05 22:51 | XMS_ITS | Continuity of Care Document ---
Author Organization [facility] Address [address] [place] [address]- Care Team Providers Care Laundry Washer Name Role Phone Hattie CHAN, Adrienne Thompson Primary Care Physician [phone] [place] [facility] [place]19/[place] - 12/26/[address] [address] Attending Physician: Kelsea Cat Admitting Physician: Kelsea Cat Referring Physician: Kelsea Cat Allergies, Adverse Reactions, Alerts Substance Reaction Severity Status penicillin rash Active shellfish throat itching Active Medications modafinil 200 mg oral tablet See Instructions, Take 1/2 tab by mouth daily in the morning, may increase to 1 tab by mouth daily if needed, # 30 tablet, 0 Refills, Maintenance, 12/03/22 17:10:00 EDT, [facility] #[id number], Partial fill upon patient request if the [...] tablet, 5 Refills, Maintenance, 06/18/22 12:12:00 EDT, [facility] #[id number], Partial fill upon patient request... Start Date: [...] Personnel Name: Hattie CHAN, Adrienne Thompson Position: [facility] Outreach Member Role: PCP Address: Address: [address] [place] [address]- Care Team Related Persons Name: ARPITA WELCH Address: home [address] [place] [address] Name: AMIRAH VILLAGOMEZ Address: home [address] [place] [address]
--- OUTSIDE RECORDS SUMMARY | 2024-01-05 22:51 | XMS_ITS | Continuity of Care Document ---
Author Organization [facility] Address [address] [place] [address]- Care Team Providers Care Inspector Wire Products Name Role Phone Adrienne Kuhn NP Primary Care Physician [phone] [place] [facility] [place] 05/09/22 - 06/08/22 [facility] [address] [address]- Attending Physician: Farhat Mujica Admitting Physician: Farhat Mujica Referring Physician: Admtr Ar8 Allergies, Adverse Reactions, Alerts Substance Reaction Severity Status penicillin rash Active shellfish throat itching Active Problem List Condition Effective Dates Status Health Status Inform ant HLD (hyperlipidemia)(Confirmed) Active Migraines(Confirmed) Active Obese class I(Confirmed) Active Social History Social History Type Response Smoking Status Never (less than 100 in lifetime) entered on: 11/03/18 Sex Care Team Personnel Name: Adrienne Kuhn NP Address: [address] [place] [id number]
--- OUTSIDE RECORDS SUMMARY | 2024-01-05 22:52 | XMS_ITS | Continuity of Care Document ---
Author Organization [facility] Elisabet narendra Address [address] [place] [address] [address] [place] [address]- Care Team Providers Care Emergency Man Name Role Phone Hattie CHAN, Adrienne Thompson Primary Care Physician [phone] [place] [facility] [place](s): 02/10/23 - 03/12/23 [facility] [address] [place], [place] [address] Allergies, Adverse Reactions, Alerts Substance Reaction Severity Status penicillin rash Active shellfish throat itching Active Medications almotriptan 12.5 mg oral tablet 1 tablet = 12.5 mg, By Mouth, Once, PRN for migraine headache, # 9 tablet, 1 Refills, Soft Stop, 02/19/23 10:42:00 EDT, Tablet, [facility] #[id number], Partial fill upon patient request if the prescription is for a schedule II opioid drug., 160.0... Start Date: 02/19/23 Status: Ordered modafinil 200 mg oral tablet See Instructions, Take 1/2 tab by mouth daily in the morning, may increase to 1 tab by mouth daily if needed, # 30 tablet, 0 Refills, Maintenance, 12/03/22 17:10:00 EDT, [facility] #[id number], Partial fill upon patient request if the prescriptio... Start Date: 12/03/22 Status: Ordered nortriptyline 10 mg oral capsule 20 mg, 2, capsule, By Mouth, Daily at bedtime, start by taking 1 tab nightly for 1 week then increase to 2 tablets nightly., # 60 capsule, Refills 3, Tot. Refills 3, Maintenance, 02/19/23 10:54:00 EDT, Route to Pharmacy Electronically, [facility] Start Date: 02/19/23 Status: Ordered pantoprazole [...] Refills, Soft Stop, 02/19/23 10:53:00 EDT, Tablet, [facility] #[id number], Partial fill upon patient... Start Date: 02/19/23 Status: Ordered Problem List Condition Confirmation Course Effective Dates Status Health St atus Informant HLD (hyperlipidemia) Confirmed Active Migraines Confirmed Active Social History Social History Type Response Smoking Status Never (less than 100 in lifetime) entered on: 11/03/18 Sex Patient Care team information Care Team Personnel Name: Adrienne Kuhn NP Position: [facility] Outreach Member Role: PCP Address: Address: [address] [place] [address]- Care Team Related Persons Name: ARPITA WELCH Address: home [address] [place] [address] Name: JOCELYN JAMES Address: [address] [place] [address] Name: AMIRAH VILLAGOMEZ Address: home [address] [place] [address]
--- OUTSIDE RECORDS SUMMARY | 2024-01-05 22:52 | XMS_ITS | Continuity of Care Document ---
Author Organization [facility] Letty [facility] Address [address] [place] [address], [address] [place] [address]- Care Team Providers Care Retail Grocer Name Role Phone Hattie CHAN, Adrienne Thompson Primary Care Physician [phone] [id number] [address] [facility], [address] [place] [address]- Attending Physician: Favian Nagy MD Referring Physician: Adrienne Kuhn NP Allergies, Adverse Reactions, Alerts Substance Reaction Severity Status penicillin rash Active shellfish throat itching Active Medications almotriptan 12.5 mg oral tablet 1 tablet = 12.5 mg, By Mouth, Once, PRN for migraine headache, # 9 tablet, 1 Refills, Soft Stop, 02/19/23 10:42:00 EDT, Tablet, [facility] #[id number], Partial fill upon patient request if the prescription is for a schedule II opioid drug., 160.0... Start Date: 02/19/23 Status: Ordered modafinil 200 mg oral tablet See Instructions, Take 1/2 tab by mouth daily in the morning, may increase to 1 tab by mouth daily if needed, # 30 tablet, 0 Refills, Maintenance, 12/03/22 17:10:00 EDT, [facility] #[id number], Partial fill upon patient request if the prescriptio... Start Date: 12/03/22 Status: Ordered nortriptyline 10 mg oral capsule 20 mg, 2, capsule, By Mouth, Daily at bedtime, start by taking 1 tab nightly for 1 week then increase to 2 tablets nightly., # 60 capsule, Refills 3, Tot. Refills 3, Maintenance, 02/19/23 10:54:00 EDT, Route to Pharmacy Electronically, [facility] Start Date: 02/19/23 Status: Ordered pantoprazole [...] Refills, Soft Stop, 02/19/23 10:53:00 EDT, Tablet, [facility] #[id number], Partial fill upon patient... Start Date: 02/19/23 Status: Ordered Problem List Condition Confirmation Course Effective Dates Status Health St atus Informant HLD (hyperlipidemia) Confirmed Active Migraines Confirmed Active Social History Social History Type Response Smoking Status Never (less than 100 in lifetime) entered on: 11/03/18 Sex Patient Care team information Care Team Personnel Name: Adrienne Kuhn NP Position: [facility] Outreach Member Role: PCP Address: Address: [address] [place] [address]- Care Team Related Persons Name: ARPITA WELCH Address: home [address] [place] [address] Name: JOCELYN JAMES Address: [address] [place] [address] Name: AMIRAH VILLAGOMEZ Address: home [address] [place] [address]
--- OUTSIDE RECORDS SUMMARY | 2024-01-05 22:52 | XMS_ITS | Continuity of Care Document ---
Author Organization [facility] Address [address] [place] [address]- Care Team Providers Care Senior Dot Net Developer Name Role Phone Hattie CHAN, Adrienne Thompson Primary Care Physician [place] [facility] [place] Date(s): 09/03/21 - 10/03/21 [facility] [address] [address] Attending Physician: Farhat Mujica Admitting Physician: [...] tablet, 5 Refills, Maintenance, 08/29/21 11:08:00 EST, [facility] #[id number], Partial fill upon patient request... Start Date: 08/29/21 Status: Ordered Problem List Condition Effective Dates Status Health Status Inform ant HLD (hyperlipidemia)(Confirmed) Active Migraines(Confirmed) Active Obese class I(Confirmed) Active Social History Social History Type Response Smoking Status Never (less than 100 in lifetime) entered on: 11/03/18 Sex
--- OUTSIDE RECORDS SUMMARY | 2024-01-05 22:52 | XMS_ITS | Continuity of Care Document ---
Author Organization [facility] Address [address] [facility], [address] d Floor, [address] [place] [address]- Care Team Providers Care Professor Of Languages Name Role Phone Hattie CHAN, Adrienne Thompson Primary Care Physician [place] [facility] [place] 07/16/22 [facility] [address] [facility], 3rd Floor, [address] [place] [address] Allergies, Adverse Reactions, Alerts Substance Reaction Severity Status penicillin rash Active shellfish throat itching Active Medications rizatriptan 5 mg oral tablet 1 tablet = 5 mg, By Mouth, Daily, Take at onset of migraine. may repeat in 2 hours if needed, do not exceed 2 doses in 24 hours, # 9 tablet, 5 Refills, Maintenance, 06/18/22 12:12:00 EDT, [facility] #[id number], Partial fill upon patient request... Start Date: [...] Name: Adrienne Kuhn NP Address: Address: [address] [place], [place] [address]
--- OUTSIDE RECORDS SUMMARY | 2024-01-05 22:52 | XMS_ITS | Continuity of Care Document ---
Author Organization [facility] Address [address] [place] [address]- Care Team Providers Care Metal Bonding Press Operator Name Role Phone Hattie CHAN, Adrienne Thompson Primary Care Physician [phone] En[place] [facility] [place] Date(s): 03/20/22 - 05/04/22 [facility] [address] [address] Attending Physician: Dian Leong Admitting Physician: Dian Leong Referring Physician: Adrienne Kuhn NP Allergies, Adverse [...]
--- OUTSIDE RECORDS SUMMARY | 2024-01-05 22:52 | XMS_ITS | Continuity of Care Document ---
Author Organization [facility] Address [address] [facility], 3r d Floor, [address] [place] [address]- Care Team Providers Care Tie Puller Name Role Phone Hattie CHAN, Adrienne Thompson Primary Care Physician [phone] [place] [facility] [place] 10[place]/22 - 11/29/22 [facility] [address], [address] Floor, [address] [place] [address] Attending Physician: Farhat Mujica Admitting Physician: AdmFarhat [...] tablet, 5 Refills, Maintenance, 06/18/22 12:12:00 EDT, [facility] #[id number], Partial fill upon patient request... Start Date: [...] Personnel Name: Hattie CHAN, Adrienne Thompson Position: [facility] Outreach Member Role: PCP Address: Address: [address] [place] [address]- Care Team Related Persons Name: ARPITA WLECH Address: home [address] [place] [address] Name: AMIRAH VILLAGOMEZ Address: home [address] [place] [address]
--- OUTSIDE RECORDS SUMMARY | 2024-01-05 22:52 | XMS_ITS | Continuity of Care Document ---
Author Organization [facility] Address [address] [place] [address]- Care Team Providers Care Sand Cutter Name Role Phone Hattie CHAN, Adrienne Thompson Primary Care Physician [phone] Encounter [facility] [place] Date(s): 12/17/22 - 01/16/[address] [address] Attending Physician: Farhat Mujica [...] tablet, 0 Refills, Maintenance, 12/03/22 17:10:00 EDT, [facility] #[id number], Partial fill upon patient request if the [...] tablet, 5 Refills, Maintenance, 06/18/22 12:12:00 EDT, [facility] #[id number], Partial fill upon patient request... Start Date: [...] Personnel Name: Hattie CHAN, Adrienne Thompson Position: [facility] Outreach Member Role: PCP Address: Address: [address] [place] [address]- Care Team Related Persons Name: ARPITA WELCH Address: home [address] [place] [address] Name: AMIRAH VILLAGOMEZ Address: home [address] [place] [address]
--- OUTSIDE RECORDS SUMMARY | 2024-01-05 22:52 | XMS_ITS | Continuity of Care Document ---
Author Organization [facility] Kevin [facility] Address [address] [place] [address], 4t [place] [address]- Care Team Providers Care Child Day Care Teacher Name Role Phone Hattie CHAN, Adrienne Thompson Primary Care Physician [id number]11[facility] - 07/09/23 [facility] [address] [facility], 4th Floor [place], [place] [address] Attending Physician: Yakov CLARKE, Favian Riddle Allergies, Adverse Reactions, Alerts Substance Reaction Severity Status penicillin rash Active shellfish throat itching Active Medications almotriptan 12.5 mg oral tablet 1 tablet = 12.5 mg, By Mouth, Once, PRN for migraine headache, # 9 tablet, 1 Refills, Soft Stop, 02/19/23 10:42:00 EDT, Tablet, [facility] #[id number], Partial fill upon patient request if the prescription is for a schedule II opioid drug., 160.0... Start Date: 02/19/23 Status: Ordered modafinil 200 mg oral tablet See Instructions, Take 1/2 tab by mouth daily in the morning, may increase to 1 tab by mouth daily if needed, # 30 tablet, 0 Refills, Maintenance, 12/03/22 17:10:00 EDT, [facility] #[id number], Partial fill upon patient request if the [...] Refills, Soft Stop, 02/19/23 10:53:00 EDT, Tablet, [facility] #[id number], Partial fill upon patient... Start Date: 02/19/23 Status: Ordered Problem List Condition Confirmation Course Effective Dates Status Health St atus Informant HLD (hyperlipidemia) Confirmed Active Migraines Confirmed Active Social History Social History Type Response Smoking Status Never (less than 100 in lifetime) entered on: 11/03/18 Sex Patient Care team information Care Team Personnel Name: Adrienne Kuhn NP Position: [facility] Outreach Member Role: PCP Address: Address: [address] [place] [address]- Care Team Related Persons Name: ARPITA WELCH Address: home [address] [place] [address] Name: JOCELYN JAMES Address: [address] [place] [address] Name: AMIRAH VILLAGOMEZ Address: home [address] [place] [address]
--- OUTSIDE RECORDS SUMMARY | 2024-01-05 22:52 | XMS_ITS | Continuity of Care Document ---
Author Organization [facility] Address [address] [facility], 3r d Floor, [address] [place] [address]- Care Team Providers Care Auto Damage Adjuster Name Role Phone Hattie CHAN, Adrienne Thompson Primary Care Physician [phone] Encounter [facility] [place] Date(s): 08/13/23 - 09/12/23 [facility] [address], 3[address] Floor, [address] [place] [email or web address] Attending Physician: Farhat Mujica Admitting Physician: AdmtrFarhat Referring Physician: Admtr, Ar8 Allergies, Adverse Reactions, Alerts Substance Reaction Severity Status penicillin rash Active shellfish throat itching Active Medications almotriptan 12.5 mg oral tablet 1 tablet = 12.5 mg, By Mouth, Once, PRN for migraine headache, # 9 tablet, 1 Refills, Soft Stop, 02/19/23 10:42:00 EDT, Tablet, [facility] #[id number], Partial fill upon patient request if the prescription is for a schedule II opioid drug., 160.0... Start Date: 02/19/23 Status: Ordered modafinil 200 mg oral tablet See Instructions, Take 1/2 tab by mouth daily in the morning, may increase to 1 tab by mouth daily if needed, # 30 tablet, 0 Refills, Maintenance, 12/03/22 17:10:00 EDT, [facility] #[id number], Partial fill upon patient request if the prescriptio... Start Date: 12/03/22 Status: Ordered nortriptyline 10 mg oral capsule 20 mg, 2, capsule, By Mouth, Daily at bedtime, start by taking 1 tab nightly for 1 week then increase to 2 tablets nightly., # 60 capsule, Refills 3, Tot. Refills 3, Maintenance, 02/19/23 10:54:00 EDT, Route to Pharmacy Electronically, [facility]... Start Date: 02/19/23 Status: Ordered pantoprazole [...] Refills, Soft Stop, 02/19/23 10:53:00 EDT, Tablet, [facility] #[id number], Partial fill upon patient... Start Date: 02/19/23 Status: Ordered Problem List Condition Confirmation Course Effective Dates Status Health St atus Informant HLD (hyperlipidemia) Confirmed Active Migraines Confirmed Active Obese class I Confirmed Active Social History Social History Type Response Smoking Status Never (less than 100 in lifetime) entered on: 11/03/18 Sex Patient Care team information Care Team Personnel Name: Adrienne Kuhn NP Position: [facility] Outreach Member Role: PCP Address: Address: [address] [place] [address]- Care Team Related Persons Name: ARPITA WELCH Address: home [address] [place] [address] Name: JOCELYN JAMES Address: [address] [place] [address] Name: AMIRAH VILLAGOMEZ Address: home [address] [place] [address]
--- OUTSIDE RECORDS SUMMARY | 2024-01-05 22:52 | XMS_ITS | Continuity of Care Document ---
Author Organization [facility] Address [address] [place] [address]- Care Team Providers Care Director Construction Services Name Role Phone Hattie CHAN, Adrienne Thompson Primary Care Physician [phone] Encounter [facility] Date(s): 08/28/21 - 09/27/21 [facility] [address] [place] [address] Attending Physician: Farhat Mujica Admitting Physician: [...] tablet, 5 Refills, Maintenance, 08/29/21 11:08:00 EST, [facility] #[id number], Partial fill upon patient request... Start Date: 08/29/21 Status: Ordered Problem List Condition Effective Dates Status Health Status Inform ant HLD (hyperlipidemia)(Confirmed) Active Migraines(Confirmed) Active Obese class I(Confirmed) Active Social History Social History Type Response Smoking Status Never (less than 100 in lifetime) entered on: 11/03/18 Sex
--- OUTSIDE RECORDS SUMMARY | 2024-01-05 22:52 | XMS_ITS | Continuity of Care Document ---
Author Organization [facility] Address [address] [facility], [address]r d Floor, [address] [place] [address]- Care Team Providers Care Zipper Machine Operator Name Role Phone Hattie CHAN, Adrienne Thompson Primary Care Physician [phone] [place] [facility] [place](s): 06/24/22 - 07/24/22 [facility] [address] [facility], 3rd Floor, [address] [place] [address] Allergies, Adverse Reactions, Alerts Substance Reaction Severity Status penicillin rash Active shellfish throat itching Active Medications rizatriptan 5 mg oral tablet 1 tablet = 5 mg, By Mouth, Daily, Take at onset of migraine. may repeat in 2 hours if needed, do not exceed 2 doses in 24 hours, # 9 tablet, 5 Refills, Maintenance, 06/18/22 12:12:00 EDT, [facility] #[id number], Partial fill upon patient request... Start Date: [...] Team Personnel Name: Adrienne Kuhn NP Position: [facility] Outreach Member Role: PCP Address: Address: [address] [place] [address]- Care Team Related Persons Name: ARPITA WELCH Address: home [address] [place] [address] Name: AMIRAH VILLAGOMEZ Address: home [address] [place] [address]
--- OUTSIDE RECORDS SUMMARY | 2024-01-05 22:52 | XMS_ITS | Continuity of Care Document ---
Author Organization [facility] Address [address] [place] [address]- Care Team Providers Care Carnival Worker Name Role Phone Hattie CHAN, Adrienne Thompson Primary Care Physician [phone] Encounter [facility] [place] Date(s): 12/11/22 - 01/06/[address] [address] Encounter Diagnosis Tension-type headache, unspecified, not intractable(Final) - Discharge Disposition: A-D/C Home Attending Physician: Kelsea Cat Admitting Physician: Kelsea Cat Referring Physician: Kelsea Cat Allergies, Adverse Reactions, Alerts Substance Reaction Severity Status penicillin rash Active shellfish throat itching Active Medications modafinil 200 mg oral tablet See Instructions, Take 1/2 tab by mouth daily in the morning, may increase to 1 tab by mouth daily if needed, # 30 tablet, 0 Refills, Maintenance, 12/03/22 17:10:00 EDT, [facility] #[id number], Partial fill upon patient request if the [...] tablet, 5 Refills, Maintenance, 06/18/22 12:12:00 EDT, [facility] #[id number], Partial fill upon patient request... Start Date: 06/18/22 Status: Ordered Problem List Condition Confirmation Course Effective Dates Status Health St atus Informant HLD (hyperlipidemia) Confirmed Active Migraines Confirmed Active Obese class I Confirmed Active Social History Social History Type Response Smoking Status Never (less than 100 in lifetime) entered on: 11/03/18 Sex Patient Care team information Care Team Personnel Name: Hattie CHAN, Adirenne Thompson Position: [facility] Outreach Member Role: PCP Address: Address: [address] [place] [address]- Care Team Related Persons Name: ARPITA WELCH Address: home [address] [place] [address] Name: AMIRAH VILLAGOMEZ Address: home [address] [place] [address]
--- OUTSIDE RECORDS SUMMARY | 2024-01-05 22:52 | XMS_ITS | Continuity of Care Document ---
Author Organization [facility] Address Unknown Care Team Providers Care Aerial Survey Technician Name Role Phone Hattie CHAN, Adrienne Thompson Primary Care Physician [phone] Encounter [facility] [place] [facility] [id number] Date(s): 02/24/22 - 05/01/22 [facility] Attending Physician: Kelsea Cat Admitting Physician: Kelsea Cat Allergies, Adverse Reactions, Alerts Substance Reaction Severity Status penicillin rash Active shellfish throat itching Active Problem List Condition Effective Dates Status Health Status Inform ant HLD (hyperlipidemia)(Confirmed) Active Migraines(Confirmed) Active Obese class I(Confirmed) Active Social History Social History Type Response Smoking Status Never (less than 100 in lifetime) entered on: 11/03/18 Sex
== END 2024-01-06 01:06 | disposition left against medical advice (07) ==
PROVIDERS: Physician Assistant Medical; Emergency Provider Emergency Medicine; PCP Nurse Practitioner
DX: G43.909 Migraine, unspecified, not intractable, without status migrainosus (principal); Z11.52 Encounter for screening for COVID-19; Z20.828 Contact with and (suspected) exposure to other viral communicable diseases; Z53.21 Procedure and treatment not carried out due to patient leaving prior to being seen by health care provider
CPT/HCPCS: 0241U; 70450; 80048; 80076; 84702; 85025; 99282; 99284

== ENCOUNTER 2024-07-01 07:53 | Outpatient (REF) | payer OTHER, SELFPAY ==
[2024-07-01 09:57] LABS: Anion Gap 12 (12-20); Blood Urea Nitrogen 10 mg/dL (9-16); Calcium 9.7 mg/dL (8.4-10.2); Carbon Dioxide 28 mmol/L (22-29); Chloride 104 mmol/L (96-108); Cholesterol 232 mg/dL (<200); Estimated Glomerular Filt Rate > 60; Glucose Random 90 mg/dL (60-115); HDL Cholesterol 65 mg/dL (>40); LDL Cholesterol Calculated 150 mg/dL (<100); Sodium 140 mmol/L (135-145); Triglycerides 89 mg/dL (<150)
[2024-07-01 10:17] LABS: ~HepC Num1 0.09 S/CO (0.00-0.79); ~Hepatitis C Antibody Nonreactive (Nonreactive)
== END 2024-07-01 07:54 | disposition home or self-care (01) ==
LOC: HO.LAB 07:53
DX: Z00.00 Encounter for general adult medical examination without abnormal findings (principal)
CPT/HCPCS: 36415; 80048; 80061; 86803

== ENCOUNTER 2024-07-21 07:21 | Outpatient (REF) | payer OTHER, SELFPAY ==
[2024-07-21 07:45] LABS: MANUAL DIFF FLAG NO
[2024-07-21 07:55] LABS: White Blood Count 5.7 X10*3/uL (4.8-10.8)
[2024-07-21 07:56] LABS: Basophils Percent Auto 0.5 % (0-2); Eosinophils Absolute Auto 0.2 X10*3/uL (0.0-0.4); Eosinophils Percent Auto 2.6 % (0-4); Hematocrit 39.7 % (37.0-47.0); Hemoglobin 13.1 g/dl (12.0-16.0); Imm Gran Abs Auto 0.01 X10*3/uL (0.00-0.03); Imm Gran Pct Auto 0.2 % (0.0-0.4); Lymphocytes Absolute Auto 1.7 X10*3/uL (1.2-4.9); Lymphocytes Percent Auto 30.4 % (20-40); Mean Corpuscular Hemoglobin 28.4 pg (27.0-33.0); Mean Corpuscular Volume 85.9 fL (80.0-98.0); Mean Platelet Volume 9.8 fL (9.4-12.3); Monocytes Absolute Auto 0.5 X10*3/uL (0.1-1.2); Monocytes Percent Auto 8.1 % (2-11); Neutrophils Absolute Auto 3.3 x10*3/uL (2.0-8.3); Neutrophils Percent Auto 58.2 % (45-73); Platelet Count 413 X10*3/uL (160-400); Red Blood Count 4.62 X10*6/uL (4.20-5.50); Red Cell Distribution Width 12.9 % (11.0-16.0)
[2024-07-21 08:44] LABS: Thyroid Stimulating Hormone 1.08 uIU/mL (0.32-4.0)
[2024-07-21 08:45] LABS: Vitamin B12 439 pg/mL (200-900)
== END 2024-07-21 07:22 | disposition home or self-care (01) ==
LOC: HO.LAB 07:21
DX: R53.83 Other fatigue (principal); Z86.2 Personal history of diseases of the blood and blood-forming organs and certain disorders involving the immune mechanism
CPT/HCPCS: 36415; 82607; 84443; 85025